=== PATIENT | female | born 1985 | race Caucasian/White ===

== ENCOUNTER 2019-05-26 11:05 | Emergency (ER) | payer OTHER, SELFPAY ==
--- NOTE | ~2019-05-26 | XR_ITS ---
EXAMINATION: XR chest 2V DATE: 05/26/2019 11:46 INDICATION: Left chest pain. TECHNIQUE: Frontal and lateral views of the chest were obtained. COMPARISON: Chest single view 02/17/2009 FINDINGS: There is mild atelectasis in the lower lung zones. No pleural effusion or pneumothorax. The heart size is normal. IMPRESSION: 1. Mild atelectasis in the lower lung zones. Reviewed, dictated and finalized at location A. ICE FELLOW
[2019-05-26 11:26] VITALS: BP 104/63; PULSE 100; RESP 20; TEMP 37.3; O2SAT 99
--- NOTE | 2019-05-26 11:32 | ECG_ITS ---
Measurements Intervals [place] Rate: 77 P: 49 CA: 179 QRS: 66 QRSD: 67 T: 65 QT: 337 QTc: 382 Interpretive Statements SINUS RHYTHM NORMAL ECG Electronically Signed On 05-26-2019 13:05:35 PAPER TESTER by Juan Pablo Goins D.O.
[2019-05-26 11:49] LABS: Basophils Percent Auto 0.6 % (0.2-1.2); Eosinophils Absolute Auto 0.2 K/mm3 (0-0.3); Eosinophils Percent Auto 3.7 % (0-4.4); Hematocrit 41.6 % (37.0-47.0); Hemoglobin 13.5 g/dL (12.0-15.0); Immature Granulocyte Absolute 0.01 K/mm3 (0.00-0.031); Immature Granulocyte Percent A 0.2 % (0-0.5); Lymphocytes Absolute Auto 2.22 K/mm3 (0.9-3.2); Lymphocytes Percent Auto 35.6 % (18.3-44.2); Mean Corpuscular HGB Conc 32.5 g/dl (32-36); Mean Corpuscular Volume 92.4 fl (80-100); Mean Platelet Volume 9.6 fl (7.4-10.4); Monocytes Absolute Auto 0.4 K/mm3 (0.1-0.6); Monocytes Percent Auto 6.9 % (2.6-8.5); Neutrophils Absolute Auto 3.3 K/mm3 (1.3-6.7); Platelet Count Result 207 k/mm3 (150-375); Red Cell Distribution Width 12.4 % (11.5-14.5); White Blood Count 6.2 K/mm3 (4.5-10.0)
[2019-05-26 11:58] LABS: INR 0.9; Prothrombin Time 11.6 Seconds (11.1-14.7)
[2019-05-26 12:01] LABS: Blood Urea Nitrogen 14 mg/dL (7-17); Calcium 9.6 mg/dL (8.4-10.2); Carbon Dioxide 25 mmol/L (22-30); Chloride 105 mmol/L (98-107); Estimated CRCL calculation 107 ml/min; Estimated Glomerular Filt Rate > 60; Glucose 88 mg/dL (65-105); Potassium 4.2 mmol/L (3.4-5.0); Sodium 137 mmol/L (137-145)
[2019-05-26 12:12] LABS: Troponin I < 0.012 ng/mL (0.000-0.034)
[2019-05-26 12:52] VITALS: BP 112/77; PULSE 89; RESP 16; O2SAT 100
--- NOTE | 2019-05-26 13:00 | ED.CHESTPAIN ---
HPI - Chest Pain General Chief Complaint: Recheck/Abnormal Lab/Rx Stated Complaint: chest pain x2 months Time Seen by Provider: 05/26/19 12:47 Source: patient and RN notes reviewed Mode of arrival: ambulatory Limitations: no limitations History of Present Illness HPI narrative: A 34 y/o female presents to the ED with constant, worsening, 8/10, lt CP for the past 3-4 months. She states that the pain is a pressure and that it radiates into her lt upper back and lt neck. She reports that the pain is aggravated when she coughs and denies anything alleviating her pain. She notes that she has had blood work done by her PCP and that her CRP was 1.7, so she was told to come to the ED to be evaluated. She denies any SOB, fevers, chills, N/V/D, ABD pain, and any other medical complaints at this time. MD complaint: chest pain Onset (ago): month(s) (3-4) Timing of current episode: constant and increasing Pain location: left chest Pain radiation: back (lt upper) and neck (lt) Pain scale (0-10): 8 Quality: other (pressure) Relieving factors: nothing Exacerbating factors: other (coughing) Related Data Home Medications Medication Instructions Recorded Confirmed alprazolam 03/26/19 escitalopram oxalate mg 03/26/19 estradiol mg 03/26/19 quetiapine 03/26/19 Allergies Allergy/AdvReac Type Severity Reaction Status Date / Time soy Allergy Mild Rash Verified 03/26/19 11:29 bee venom protein (honey bee) Allergy Unknown shock Verified 03/26/19 11:29 peanut Allergy Unknown NUTS Verified 10/16/18 12:16 CAUSE RASH metoclopramide AdvReac Mild jitters Verified 03/26/19 11:29 Review of Systems Review of Systems: All systems reviewed & are unremarkable except as noted in HPI and below Constitutional: Constitutional: Denies chills, Denies fever(s), Denies headache(s) and Denies weakness Eyes: Eyes: Denies blurry vision ENT: Denies headache(s) Cardiovascular: Cardiovascular: Reports chest pain (lt that radiates into her lt upper back and lt neck) and Denies dyspnea Respiratory: Respiratory: Denies cough and Denies dyspnea Gastrointestinal: Gastrointestinal: Denies abdominal pain, Denies diarrhea, Denies nausea and Denies vomiting Genitourinary: Genitourinary: Denies hematuria and Denies dysuria Neurologic: Denies headache(s) and Denies weakness PMFSH Past Medical History Medical History Anxiety Back pain Brain abscess Bronchitis Fibroids Foot fracture, right History of pneumonia Jaquez syndrome Ovarian cyst Pneumonia UTI (urinary tract infection) Surgical History Surgical History History of hysterectomy Hx of appendectomy Hx of brain surgery surgical removal of brain abscess Hx of section Hx of foot surgery hardware in rt foot Hx of tonsillectomy Family History Family History Grandparent Family history of malignant neoplasm of breast Family history of malignant neoplasm of ovary Social History Social History Alcohol intake: never Gender identity (if verbalized by the patient): Female Comments PCP: Dr. Kilgore. Exam Const: General: no acute distress and well developed Orientation/consciousness: oriented to person, oriented to place, oriented to time and patient oriented x3 HENMT: Head: normocephalic Ears: external ears normal General nose exam: Normal external nose present Eyes: General: appearance normal, both eyes and all related structures Conjunctivae: conjunctivae normal Neck: Neck: normal visual inspection and full ROM Chest: Chest palpation & inspection: normal inspection of the chest and no tenderness Resp: Effort & Inspection: normal respiratory effort Auscultation: clear to auscultation bilaterally Cardio: Rate: regular rate Rhythm: regular rhythm GI: GI Palp: No abdominal tenderness and Y
[2019-05-26 13:35] VITALS: BP 102/70; PULSE 82; RESP 19; O2SAT 99
[2019-05-26 14:59] VITALS: BP 109/87; PULSE 79; RESP 18; O2SAT 99
[2019-05-26 15:50] VITALS: BP 104/77; PULSE 82; RESP 18; O2SAT 99
[2019-05-26 16:01] LABS: Troponin I < 0.012 ng/mL (0.000-0.034)
[2019-05-26 16:33] VITALS: BP 104/77; PULSE 84; RESP 18; O2SAT 99
== END 2019-05-26 16:35 | disposition home or self-care (01) ==
PROVIDERS: Emergency Medicine; Emergency Provider Emergency Medicine
DX: R07.9 Chest pain, unspecified (principal); F41.9 Anxiety disorder, unspecified; Z87.440 Personal history of urinary (tract) infections
CPT/HCPCS: 36415; 71046; 80048; 84484; 85025; 85380; 85610; 85730; 93005; 99284

== ENCOUNTER 2019-06-14 09:28 | Emergency (ER) | payer OTHER, SELFPAY ==
[2019-06-14 09:36] VITALS: BP 145/102; PULSE 65; RESP 19; TEMP 36.3; O2SAT 97
--- NOTE | 2019-06-14 09:50 | ED.NAVMDI ---
HPI - Nausea/Vomiting/Diarrhea General Chief complaint: Nausea/Vomiting/Diarrhea <JORGE San Last Filed: 06/14/19 13:22> Stated complaint: VOMITING <JORGE San Last Filed: 06/14/19 13:22> Time Seen by Provider: 06/14/19 09:30 <JORGE San Last Filed: 06/14/19 13:22> Source: patient <JORGE San Last Filed: 06/14/19 13:22> Mode of arrival: ambulatory <JORGE San Last Filed: 06/14/19 13:22> Limitations: no limitations <JORGE San Last Filed: 06/14/19 13:22> History of Present Illness HPI Narrative: This is a 34 year old female that presents to the ER for N/V/D since this morning. Reports several episodes of vomiting. She has been unable to keep down any liquids. Also reports some episodes of diarrhea. Reports some crampy upper abdominal pain. Denies fever, recent antibiotic use, dysuria, hematuria, or hematochezia. <JORGE San Last Filed: 06/14/19 13:22> Related Data Home medications: Home Medications Medication Instructions Recorded Confirmed alprazolam 0.25 mg PO PRN 03/26/19 escitalopram oxalate mg 03/26/19 quetiapine 03/26/19 <JORGE San Last Filed: 06/14/19 13:22> Allergies/Adverse reactions: Allergies Allergy/AdvReac Type Severity Reaction Status Date / Time bee venom protein (honey bee) Allergy Severe Anaphylactic Verified 06/14/19 09:41 Shock soy Allergy Mild Rash Verified 06/14/19 09:41 peanut Allergy Unknown NUTS Verified 06/14/19 09:41 CAUSE RASH metoclopramide AdvReac Mild jitters Verified 06/14/19 09:41 <JORGE San Last Filed: 06/14/19 13:22> Review of Systems Review of Systems: Narrative: CONSTITUTIONAL: Denies fever ENT: Denies rhinorrhea, congestion, sore throat GASTROINTESTINAL: Reports abdominal pain, nausea, vomiting, and diarrhea. GENITOURINARY: Denies dysuria or hematuria. <Kimberly Pelaez PA-C - Last Filed: 06/14/19 13:22> All systems reviewed & are unremarkable except as noted in HPI and below <Kimberly Pelaez PA-C - Last Filed: 06/14/19 13:22> PMFSH Social History Social History: Social History Alcohol intake: never Gender identity (if verbalized by the patient): Female <JORGE San Last Filed: 06/14/19 13:22> Exam Narrative: Exam Narrative: GENERAL: Uncomfortable appearing, well-nourished, actively vomiting HEAD: Normocephalic, atraumatic. EYES: EOMI. ENT: Nares clear, no rhinorrhea or epistaxis. Mucous membranes moist. Oropharynx without tonsillar hypertrophy exudate or other lesions. Bilateral TMs pearly friend non-bulging NECK: Supple. No adenopathy or masses. CHEST: Clear to auscultation. No respiratory distress. No wheezes rales or rhonchi HEART: Regular rate and rhythm. No murmur heard. Normal peripheral pulses. ABDOMEN: Soft, nondistended, normal active bowel sounds. Mild tenderness to palpation of the mid-upper abdomen, without guarding. No CVA tenderness EXTREMITIES: Normal range of motion. No edema. SKIN: Warm, dry, no rash. NEURO: No focal deficits. Alert and oriented x3. PSYCH: Normal mood and affect <Kimberly Pelaez PA-C - Last Filed: 06/14/19 13:22> Course Reevaluation(s) Reevaluation #1: Patient reports improvement after IV antiemetic and fluids. Able to tolerate p.o. challenge <JORGE San Last Filed: 06/14/19 13:22> Date: 06/14/19 <JORGE San Last Filed: 06/14/19 13:22> Time: 13:15 <JORGE San Last Filed: 06/14/19 13:22> Vital Signs Vital signs: Vital Signs Temperature 97.4 F L 06/14/19 09:36 Pulse Rate 65 06/14/19 09:36 Respiratory Rate 19 06/14/19 09:36 Blood Pressure 145/102 H 06/14/19 09:36 Pulse Oximetry 97 06/14/19 09:36 Temperature 97.4 F L 06/14/19 09:36 Pulse Rate 99 06/14/19 13:32 Respiratory Rate 18 05/21
[2019-06-14 10:08] LABS: Basophils Percent Auto 0.4 % (0.2-1.2); Eosinophils Absolute Auto 0.1 K/mm3 (0-0.3); Eosinophils Percent Auto 0.6 % (0-4.4); Hemoglobin 14.8 g/dL (12.0-15.0); Immature Granulocyte Absolute 0.05 K/mm3 (0.00-0.031); Immature Granulocyte Percent A 0.5 % (0-0.5); Lymphocytes Absolute Auto 1.76 K/mm3 (0.9-3.2); Lymphocytes Percent Auto 15.9 % (18.3-44.2); Mean Corpuscular HGB Conc 33.6 g/dl (32-36); Mean Corpuscular Volume 89.2 fl (80-100); Mean Platelet Volume 9.6 fl (7.4-10.4); Monocytes Absolute Auto 0.5 K/mm3 (0.1-0.6); Monocytes Percent Auto 4.3 % (2.6-8.5); Neutrophils Absolute Auto 8.7 K/mm3 (1.3-6.7); Neutrophils Percent Auto 78.3 % (45.5-73.1); Platelet Count Result 245 k/mm3 (150-375); Red Blood Count 4.93 M/mm3 (4.2-5.4); Red Cell Distribution Width 12.4 % (11.5-14.5); White Blood Count 11.1 K/mm3 (4.5-10.0)
[2019-06-14] MEDS: ONDANSETRON INJ 4 MG/2 ML VIAL IV PUSH (10:09)
[2019-06-14] MEDS: SODIUM CHLORIDE 0.9% IV 1,000 ML 999 ML IV CONT (10:09)
[2019-06-14] MEDS: FAMOTIDINE 20 MG/2 ML VIAL IV PUSH (10:14)
--- NOTE | 2019-06-14 10:15 | PC.NURSE ---
Pt unable to void at this time and states that she has not had anything to eat or drink this morning.
[2019-06-14 10:16] LABS: Alanine Aminotransferase 27 U/L (4-35); Albumin Level 4.9 g/dL (3.5-5.1); Alkaline Phosphatase 124 U/L (38-126); Aspartate Amino Transferase 33 U/L (14-36); Bilirubin,Total 0.5 mg/dL (0.2-1.3); Blood Urea Nitrogen 20 mg/dL (7-17); Calcium 10.8 mg/dL (8.4-10.2); Carbon Dioxide 21 mmol/L (22-30); Chloride 106 mmol/L (98-107); Estimated CRCL calculation 107 ml/min; Estimated Glomerular Filt Rate > 60; Glucose 189 mg/dL (65-105); Lipase 253 U/L (23-300); Potassium 4.3 mmol/L (3.4-5.0); Sodium 140 mmol/L (137-145)
--- NOTE | 2019-06-14 10:37 | PC.NURSE ---
Pt still unable to void, IVF 1L bolus almost finished - pt stated she may be able to go after IVF and refuses urinary catheter until she can try to void.
[2019-06-14 11:18] VITALS: BP 131/98; BP 138/97; PULSE 78; PULSE 89
[2019-06-14 11:19] VITALS: BP 115/98; PULSE 97
[2019-06-14 11:26] LABS: Add Urine Microscopic? YES; Appearance Urine Clear (Clear); Bacteria Urine Trace /hpf; Bilirubin Urine Negative (Negative); Blood Urine 1+ (Negative); Color Urine Yellow (Yellow); Glucose Urine UA 1+ mg/dL (Negative); Ketones Urine 1+ mg/dL (Negative); Leukocyte Esterase Ur Negative LEU/UL (Negative); Mucus Urine Heavy /lpf; Nitrate Urine Negative (Negative); Protein Urine Negative (Negative); Squamous Epithelial Cell Urine Few /hpf (Few); Urobilinogen Urine Negative mg/dL (<2.0); WBC Urine 0-3 /hpf
[2019-06-14 11:27] LABS: Specific Grav Ur 1.032 (1.001-1.035)
[2019-06-14] MEDS: DICYCLOMINE HCL INJ 20 MG/2 ML VIAL IM (11:36)
[2019-06-14] MEDS: SODIUM CHLORIDE 0.9% IV 500 ML 999 ML IV CONT (11:37)
[2019-06-14 11:57] LABS: Hemoglobin A1C 5.5 % (<5.7)
--- NOTE | 2019-06-14 13:03 | PC.NURSE ---
lemon rampart soda and crackers provided to pt for po challenge.
[2019-06-14 13:32] VITALS: BP 135/95; PULSE 99; RESP 18; O2SAT 100
== END 2019-06-14 13:45 | disposition home or self-care (01) ==
PROVIDERS: Physician Assistant; Emergency Provider General Practice
DX: K52.9 Noninfective gastroenteritis and colitis, unspecified (principal)
CPT/HCPCS: 36415; 80053; 81001; 83036; 83690; 85025; 96361; 96372; 96374; 96375; 99284; J0131; J0500; J2405; J7030; J7040

== ENCOUNTER 2020-05-16 10:11 | Emergency (ER) | payer OTHER, SELFPAY ==
--- NOTE | ~2020-05-16 | XR_ITS ---
EXAMINATION: XR knee LT min 4V DATE: 05/16/2020 10:47 INDICATION: Left knee pain. TECHNIQUE: 5 views of left knee were obtained. COMPARISON: None. FINDINGS: Bone alignment is normal. No fracture. Joint spaces are well maintained. There is no knee j oint effusion. IMPRESSION: 1. Normal left knee. Reviewed, dictated and finalized at location A. R/ELECTRO OPTICS TECHNICIAN IMPRESSION: 1. Normal left knee.
--- NOTE | 2020-05-16 10:17 | ED.LOWEXIN ---
HPI - Extremity Injury (Lower) General Chief Complaint: Extremity Injury, Lower Stated Complaint: left knee injury Time Seen by Provider: 05/16/20 10:17 Source: patient and RN notes reviewed History of Present Illness HPI Narrative: Patient is a 35-year-old female who presents the urgent care with complaints of left knee injury. Patient states that she slipped on the side rail of her truck yesterday and fell directly onto the left knee. Patient states that the swelling has gone down a lot but does continue to be very tender and painful. Patient has used ice and ibuprofen for comfort. Patient states that it is very painful to bear weight and bend the knee. No other acute complaints or injuries. Patient denies of any loss of consciousness or hitting her head. No acute distress noted. Patient aware of the plan of care. Some parts of this dictation were generated by voice recognition software and may contain typographical and/or grammatical inaccuracies. Related Data Allergies Allergy/AdvReac Type Severity Reaction Status Date / Time bee venom protein (honey bee) Allergy Severe Anaphylactic Verified 05/16/20 10:27 Shock soy Allergy Mild Rash Verified 05/16/20 10:27 peanut Allergy Unknown NUTS Verified 05/16/20 10:27 CAUSE RASH metoclopramide AdvReac Mild jitters Verified 05/16/20 10:27 Review of Systems Review of Systems: Narrative: CONSTITUTIONAL: Denies fever, chills, or sweats. EYES: Denies visual changes, redness, or discharge. ENT: Denies rhinorrhea, congestion, sore throat, or otalgia. CARDIOVASCULAR: Denies chest pain, palpitations, or edema. RESPIRATORY: Denies cough or dyspnea. GASTROINTESTINAL: Denies abdominal pain, nausea, vomiting, or diarrhea. GENITOURINARY: Denies dysuria or hematuria. SKIN: Denies rash or itching. MUSCULOSKELETAL: Reports of left knee pain, swelling, tenderness due to fall NEUROLOGIC: Denies headache, numbness, or weakness. All other systems reviewed are negative, except as documented in HPI. [facility] Past Medical History Medical History (Updated 05/16/20 @ 10:57 by ANDREA Harris) Anxiety Back pain Brain abscess Bronchitis Fibroids Foot fracture, right History of pneumonia Jaquez syndrome Ovarian cyst Pneumonia UTI (urinary tract infection) Surgical History Surgical History History of hysterectomy Hx of appendectomy Hx of brain surgery surgical removal of brain abscess Hx of section Hx of foot surgery hardware in rt foot Hx of tonsillectomy Family History Family History Grandparent Family history of malignant neoplasm of breast Family history of malignant neoplasm of ovary Social History Social History Alcohol intake: never Gender identity (if verbalized by the patient): Female Comments At the time of my signature, I reviewed and agree with the nursing past medical, surgical, social, and family history. There is no relevant family history pertinent to the patient complaint. Exam Narrative: Exam Narrative: GENERAL: This is a well-nourished, well-developed patient, in no apparent distress. HEAD: normocephalic, atraumatic. EYES: PERRL. Sclera clear/white. Vision is grossly intact. EARS: External ears normal NOSE: External nose normal with no obvious nasal discharge, nares without redness, no rhinorrhea. THROAT: Mucous membranes moist NECK: Neck supple SKIN: warm, intact with no suspicious lesions or rash, good texture and turgor. NEURO: awake, alert, and oriented to person, place and time. There were no obvious focal neurologic abnormalities. EXTREMITIES: Mild edema to the anterior left knee without any obvious derangement/deformity. Range of motion to left knee limited due to pain. Weightbearing limited due to pain. Flexion of the left foot within normal limits with mild left knee pains. Diffuse left knee
[2020-05-16 10:18] VITALS: BP 136/84; PULSE 72; RESP 16; TEMP 36.5; O2SAT 100
== END 2020-05-16 11:02 | disposition home or self-care (01) ==
PROVIDERS: Emergency Provider Nurse Practitioner Family
DX: S89.92XA Unspecified injury of left lower leg, initial encounter (principal); W17.89XA Other fall from one level to another, initial encounter
CPT/HCPCS: 73564; 99213; G0463

== ENCOUNTER 2020-07-31 13:49 | Emergency (ER) | payer OTHER, SELFPAY ==
[2020-07-31 14:09] VITALS: BP 118/83; PULSE 94; RESP 18; TEMP 37.1; O2SAT 99
--- NOTE | 2020-07-31 14:26 | ED.SKABFB ---
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 Patient states she has a shorter 1 to 2-day history of right elbow eruption that is mild, itchy, pink and slightly raised. She recalls she slipped and rubbed against a patient's seat in household furnishings. She promptly cleaned it but has had symptoms since the exposure just a couple days ago. Symptoms are mild, unrelieved with OTC preparations and cleansers. Related Data Allergies Allergy/AdvReac Type Severity Reaction Status Date / Time bee venom protein (honey bee) Allergy Severe Anaphylactic Verified 05/16/20 10:27 Shock soy Allergy Mild Rash Verified 05/16/20 10:27 peanut Allergy Unknown NUTS Verified 05/16/20 10:27 CAUSE RASH metoclopramide AdvReac Mild jitters Verified 05/16/20 10:27 Review of Systems Review of Systems: Narrative: General/Constitutional: No weight loss,fever Eyes: N0: Redness,discharge Ears/Nose/Throat: No: Epistaxis,ear discharge Respiratory: Denies: Hemoptysis Gastrointestinal: No Vomiting, Bleeding-rectal Skin: No Lumps, REPORTS eruption Neurologic: No Focal Weakness,Sz Hematologic: Denies: Petechiae/Purpura Psychiatric: No: Suicida ideationl All Other Systems: Reviewed and Negative [facility] Past Medical History Medical History (Updated 07/31/20 @ 14:28 by Burton Farnsworth MD) Anxiety Back pain Brain abscess Bronchitis Fibroids Foot fracture, right History of pneumonia Jaquez syndrome Ovarian cyst Pneumonia UTI (urinary tract infection) Surgical History Surgical History History of hysterectomy Hx of appendectomy Hx of brain surgery surgical removal of brain abscess Hx of section Hx of foot surgery hardware in rt foot Hx of tonsillectomy Family History Family History Grandparent Family history of malignant neoplasm of breast Family history of malignant neoplasm of ovary Social History Social History Alcohol intake: never Gender identity (if verbalized by the patient): Female Comments At time of signature, agree with nursing past medical, surgical, social and family history. There is no relevant family history pertinent to the presenting complaint Exam Narrative: Exam Narrative: General Appearance: Well-nourished, Normocephalic, Conjunctiva clear Mouth/Throat: Normal appearing, Supple Respiratory: Airway patent, No respiratory distress Musculoskeletal: Moves all extremities, Non tender Skin: Warm, Dry ,small, discrete macular papular skin eruption of left elbow & crease Neurological: A&O x3 Psychiatric: Normal mood, Normal affect Course Vital Signs Vital signs: Vital Signs Temperature 98.8 F 07/31/20 14:09 Pulse Rate 94 07/31/20 14:09 Respiratory Rate 18 07/31/20 14:09 Blood Pressure 118/83 07/31/20 14:09 Pulse Oximetry 99 07/31/20 14:09 Temperature 98.8 F 07/31/20 14:09 Pulse Rate 94 07/31/20 14:09 Respiratory Rate 18 07/31/20 14:09 Blood Pressure 118/83 07/31/20 14:09 Pulse Oximetry 99 07/31/20 14:09 Discharge Plan Discharge Clinical Impression: Folliculitis Patient Disposition: Home, Self-Care Condition: Stable Instructions: Antibiotic Form, Folliculitis (ED) Prescriptions: New clindamycin HCl 300 mg capsule 300 mg PO Q6H Qty: 15 RF: 0 mupirocin 2 % ointment 1 applic TOPICAL TID Qty: 30 RF: 0 Follow-up/Referrals: Luann Kilgore [employer] DRIVER [Other]
== END 2020-07-31 14:34 | disposition home or self-care (01) ==
PROVIDERS: Emergency Provider Emergency Medicine
DX: L73.9 Follicular disorder, unspecified (principal)
CPT/HCPCS: 99213; G0463

== ENCOUNTER 2020-11-30 17:39 | Emergency (ER) | payer OTHER, SELFPAY ==
--- NOTE | ~2020-11-30 | XR_ITS ---
. EXAMINATION: XR knee LT min 4V DATE: 11/30/2020 18:14 INDICATION: Left knee injury presenting with left knee pain and swelling TECHNIQUE: Anteroposterior, 2 oblique and crosstable lateral views of the left knee were obtained COMPARISON: None. FINDINGS: Alignment is normal. No fracture. Joint spaces are normal on nonweightbearing imaging. No joint effu darlene/layering lipohemarthrosis. Soft tissues are unremarkable. IMPRESSION: 1. Negative left knee radiographs. Reviewed, dictated and finalized at location A.
[2020-11-30 17:46] VITALS: BP 134/76; PULSE 92; RESP 18; TEMP 37.2; O2SAT 100
[2020-11-30 18:00] VITALS: BP 134/76; PULSE 92; RESP 18; TEMP 37.2; O2SAT 100
--- NOTE | 2020-11-30 18:34 | ED.LOWEXIN ---
HPI - Extremity Injury (Lower) General Chief Complaint: Extremity Injury, Lower Stated Complaint: Pain and swollen left Knee Time Seen by Provider: 11/30/20 17:58 Source: patient and RN notes reviewed Mode of arrival: ambulatory Limitations: no limitations History of Present Illness HPI Narrative: Patient presents today complaining of left knee pain and popping x2 months that is worse with flexion. Last night at 2300 she experienced worse pain. This morning when she woke up the pain was worse even still and she also had some swelling. Denies any known injury. Denies numbness or tingling. She currently rates her pain 9/10 and has been taking ibuprofen and applying ice without relief. MD complaint: other (Left knee pain) Related Data Home Medications Medication Instructions Recorded Confirmed No Home Medications 11/30/20 11/30/20 Allergies Allergy/AdvReac Type Severity Reaction Status Date / Time bee venom protein (honey bee) Allergy Severe Anaphylactic Verified 11/30/20 17:59 Shock soy Allergy Mild Rash Verified 11/30/20 17:59 peanut Allergy Unknown NUTS Verified 11/30/20 17:59 CAUSE RASH metoclopramide AdvReac Mild jitters Verified 11/30/20 17:59 Review of Systems Review of Systems: CONSTITUTIONAL: Denies body aches, fever, chills, or sweats. EYES: Denies visual changes, redness, or discharge. ENT: Denies rhinorrhea, congestion, sore throat, or otalgia. CARDIOVASCULAR: Denies chest pain, palpitations, or edema. RESPIRATORY: Denies cough or dyspnea. GASTROINTESTINAL: Denies abdominal pain, nausea, vomiting, or diarrhea. GENITOURINARY: Denies dysuria or hematuria. SKIN: Denies rash, itching, or wounds. MUSCULOSKELETAL: Denies back pain, or myalgia.+ Left knee pain and swelling NEUROLOGIC: Denies headache, numbness, tingling, or weakness. PSYCH: Denies depression or anxiety. [facility] Past Medical History Medical History Anxiety Back pain Brain abscess Bronchitis Fibroids Foot fracture, right History of pneumonia Jaquez syndrome Ovarian cyst Pneumonia UTI (urinary tract infection) Surgical History Surgical History History of hysterectomy Hx of appendectomy Hx of brain surgery surgical removal of brain abscess Hx of section Hx of foot surgery hardware in rt foot Hx of tonsillectomy Family History Family History Grandparent Family history of malignant neoplasm of breast Family history of malignant neoplasm of ovary Social History Social History Alcohol intake: never Gender identity (if verbalized by the patient): Female Comments At time of signature, I have reviewed and agree with nursing past medical, surgical, social and family history unless otherwise noted. Please see nursing chart for further information. There is no relevant family history pertinent to the presenting complaint Exam Narrative: GENERAL: Well-appearing, well-nourished, and in no acute distress. HEAD: Normocephalic, atraumatic. EYES: EOMI. No redness or drainage. Conjunctivae normal. ENT: Mucous membranes pink and moist. NECK: Normal AROM. CHEST: No respiratory distress. EXTREMITIES: Left knee: Mild generalized edema. Tenderness just below the patella and to the medial joint line. No abnormal movement of the patella. No tenderness laterally. No erythema or ecchymosis noted. Slight pain with extension. Increased pain with flexion. Distal sensation intact. Capillary refill normal. Pulse normal. SKIN: Warm, dry, no rash. Capillary refill normal. Normal skin turgor. NEURO: No focal deficits. Alert and oriented x3. Gait steady. PSYCH: Normal affect. No signs of depression or anxiety. Course Vital Signs Vital signs: Vital Signs Temperature 98.
== END 2020-11-30 18:40 | disposition home or self-care (01) ==
PROVIDERS: Emergency Provider Nurse Practitioner
DX: M25.562 Pain in left knee (principal); F41.9 Anxiety disorder, unspecified
CPT/HCPCS: 73564; 99213; G0463

== ENCOUNTER 2020-12-06 12:14 | Emergency (ER) | payer OTHER, SELFPAY ==
--- NOTE | ~2020-12-06 | US_ITS ---
US venous doppler [facility] DATE: 12/06/2020 15:20 INDICATION: Lower leg pain, swelling TECHNIQUE: Real-time and color flow imaging and Doppler analysis of the veins of the left lower extre mity COMPARISON: None FINDINGS: The greater saphenous vein is patent. There is spontaneous and phasic flow and normal augme ntation and color flow signal and normal compression of the veins of the left leg. IMPRESSION: No evidence of deep venous thrombosis Reviewed, dictated and finalized at [facility]. Reviewed, dictated and finalized at location [facility].
[2020-12-06 12:28] VITALS: BP 105/70; PULSE 88; RESP 16; TEMP 36.6; O2SAT 100
[2020-12-06] MEDS: traMADol HCL (*CRX) 50 MG TABLET PO (14:57)
--- NOTE | 2020-12-06 16:51 | ED.LOWEXIN ---
HPI - Extremity Injury (Lower) General Chief Complaint: Extremity Injury, Lower Stated Complaint: knee pain Time Seen by Provider: 12/06/20 14:06 Source: patient Mode of arrival: ambulatory Limitations: no limitations History of Present Illness HPI Narrative: This is a 35 year old female that presents to the ER for left knee pain present over the last couple of months. Reports she is started to note swelling to the area. The swelling has started to go down into her lower leg which prompted her to be seen today. Reports decreased range of motion due to pain. She has been taking Tylenol and anti-inflammatories with little relief. She saw her primary doctor and an x-ray of the knee which is normal. Denies fever, erythema, warmth, or numbness. Related Data Allergies Allergy/AdvReac Type Severity Reaction Status Date / Time bee venom protein (honey bee) Allergy Severe Anaphylactic Verified 11/30/20 17:59 Shock soy Allergy Mild Rash Verified 11/30/20 17:59 peanut Allergy Unknown NUTS Verified 11/30/20 17:59 CAUSE RASH metoclopramide AdvReac Mild jitters Verified 12/06/20 13:01 Review of Systems Review of Systems: CONSTITUTIONAL: Denies fever SKIN: Denies rash MUSCULOSKELETAL: Reports joint pain, and myalgia. NEUROLOGIC: Denies numbness All systems reviewed & are unremarkable except as noted in HPI and below PMFSH Past Medical History Medical History (Updated 12/06/20 @ 16:59 by Kimberly Pelaez PA-C) Anxiety Back pain Brain abscess Bronchitis Fibroids Foot fracture, right History of pneumonia Jaquez syndrome Ovarian cyst Pneumonia UTI (urinary tract infection) Surgical History Surgical History History of hysterectomy Hx of appendectomy Hx of brain surgery surgical removal of brain abscess Hx of section Hx of foot surgery hardware in rt foot Hx of tonsillectomy Family History Family History Grandparent Family history of malignant neoplasm of breast Family history of malignant neoplasm of ovary Social History Social History Alcohol intake: never Gender identity (if verbalized by the patient): Female Exam Narrative: GENERAL: Well-appearing, well-nourished, and in no acute distress. HEAD: Normocephalic, atraumatic. EYES: EOMI. EXTREMITIES: Decreased active ROM in the left knee due to pain. Mild edema about the left knee anteriorly. No erythema or warmth. Normal DP pulses. Normal sensation SKIN: Warm, dry, no rash. NEURO: No focal deficits. Alert and oriented x3. PSYCH: Normal mood and affect Course Vital Signs Vital signs: Vital Signs Temperature 97.9 F 12/06/20 12:28 Pulse Rate 88 12/06/20 12:28 Respiratory Rate 16 12/06/20 12:28 Blood Pressure 105/70 12/06/20 12:28 Pulse Oximetry 100 12/06/20 12:28 Temperature 97.9 F 12/06/20 12:28 Pulse Rate 88 12/06/20 12:28 Respiratory Rate 16 12/06/20 12:28 Blood Pressure 105/70 12/06/20 12:28 Pulse Oximetry 100 12/06/20 12:28 MDM - Extremity Injury (Lower) MDM Narrative Medical decision making narrative: Patient presents the emergency department for left knee pain and swelling. Has been ongoing over the last couple of months. Patient is neurovascularly intact. Had a left knee x-ray 1 week ago outpatient that was normal. Left lower extremity venous Doppler is without evidence of DVT, no abnormal masses or cysts noted. Patient was updated on case findings. Reports she has an MRI scheduled outpatient in a couple of days. Instructed to follow-up for this and continue [id number] medications as needed. Instructed to wear a compressive brace and elevate the leg. She is to follow-up for her scheduled test. She was given warnings to return to the ER Imaging Data Radiologist's impression: ITS Impressions
== END 2020-12-06 17:09 | disposition home or self-care (01) ==
PROVIDERS: Emergency Provider Emergency Medicine
DX: M25.562 Pain in left knee (principal); F41.9 Anxiety disorder, unspecified; Z87.09 Personal history of other diseases of the respiratory system; Z87.01 Personal history of pneumonia (recurrent); Z87.440 Personal history of urinary (tract) infections
CPT/HCPCS: 93971; 99284; A9270

== ENCOUNTER 2020-12-10 16:51 | Outpatient (CLI) | payer OTHER, SELFPAY ==
--- NOTE | ~2020-12-10 | MR_ITS ---
EXAMINATION: MR knee LT wo con DATE: 12/10/2020 17:53 INDICATION: Left knee pain and swelling TECHNIQUE: Magnetic resonance imaging (MRI) of the left knee was performed without intravenous contra st. Sequences included coronal PD-weighted FSE, coronal PD-weighted FS FSE, sagittal T2-weighted FSE , sagittal PD-weighted FS FSE and axial PD weighted fat saturated FSE. COMPARISON: Left knee radiographs dated 11/30/2020 FINDINGS: Medial compartment: Complex tear of the medial meniscus which includes a bucket-handle tear with relatively thin (small i n cross-sectional area) laterally displaced meniscal flap which extends anteroposteriorly along the m edial side of the intercondylar eminence. The majority of the meniscus is nondisplaced with a second longitudinal horizontal tear plane which extends to the inferior articular surface at the meniscal shikha dy and likely posterior horn. Articular cartilage is normal. Lateral compartment: Lateral meniscus is normal. Articular cartilage is normal. Patellofemoral compartment: Articular cartilage is normal. Ligaments and tendons: Anterior and posterior cruciate ligaments are normal. The medial collateral ligament and fibular elizabeth ateral ligament complex are normal. The extensor mechanism is normal. The visualized medial and later al hamstring tendons as well as the iliotibial band are normal. Fluid: Small left knee joint effusion. Mild synovitis within a Cotton's cyst measuring 4.6 x 1.9 x 1.0 cm. No loose osteochondral bodies identified. Osseous/other: Normal marrow signal. No fracture or abnormal marrow replacing process. There is a medial plical band which inferiorly extends to, but not across the medial margin of the medial trochlea. IMPRESSION: 1. Complex tear of the medial meniscus including a longitudinal horizontal tear as well as a very sma ll laterally displaced bucket-handle flap. 2. Small left knee joint effusion with small Cotton's cyst. Reviewed, dictated and finalized at location [facility]. IMPRESSION: 1. Complex tear of the medial meniscus including a longitudinal horizontal tear as well as a very small laterally displaced bucket-handle flap. 2. Small left knee joint effusion with small Cotton's cyst.
== END 2020-12-10 16:52 | disposition home or self-care (01) ==
DX: M25.562 Pain in left knee (principal); S83.232A Complex tear of medial meniscus, current injury, left knee, initial encounter; M25.462 Effusion, left knee; M71.22 Synovial cyst of popliteal space [Baker], left knee
CPT/HCPCS: 73721

== ENCOUNTER 2021-02-03 08:30 | Outpatient (RCR) | payer OTHER, SELFPAY ==
--- NOTE | 2021-01-24 16:06 | PTOPEVAL ---
PHYSICAL THERAPY EVALUATION AND PLAN OF CARE 01-24-21 Thank you for referring Ayana Garcia to [facility].? Her order for PT is dated 01-03-21. She is scheduled to be seen for therapy? 2 x/week for 1 & 1/2 weeks, to be completed prior to her surgery date of 02-05-21. Please review, sign, date and return this plan of care JOCE. I agree with and certify that the following plan of care is medically necessary. Referring Physician Date Attending Provider: Cindy Daly MD PT Outpatient Evaluation Document 01/24/21 15:20 QUITA (Rec: 01/24/21 16:06 QUITA [id number]) Outpatient Past Medical History Past Medical History Source of Past Medical History Patient Neurological History Hx Other Neurological Disorders Yes: BRAIN TUMOR REMOVED X2; no residual issues Cardiovascular History Hx Other Cardiac Disorders Yes: cardiac irregularities, skipping beats, now is OK Respiratory History Hx Other Respiratory Disorders Yes: collapsed lung Gastrointestinal History Hx Appendectomy Yes Hx Other Gastrointestinal Disorders Yes: 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 Musculoskeletal History Hx Orthopedic Surgery Yes: RT FOOT Hematological History Hx Other Hematological Disorders Yes: GENETIC SDHA Endocrine History Hx Other Endocrine Disorders Yes: thyroid tumors , cyst on L kidney-- both monitoring HEENT History Hx Tonsillectomy Yes Psychosocial History Hx Anxiety Yes Hx Depression Yes Other History Hx Cancer Yes: UTERINE- removed Hx Other Medical Conditions Yes: 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- monitor with drs Evaluation Information Problem Diagnosis acute medial meniscal tear L knee Onset Apr 2020 Subjective Information fell in April; some Query Text:As Reported By Patient/ swelling and knee pain; went Family away and then started hurting again; going to have surgery Feb 05; Diagnostic Tests MRI For This Problem Yes: complex tear medial meniscus small sauceda's cyst Prior Level of Function Activity Level (Last 3 Months) 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
--- NOTE | 2021-03-05 13:59 | PCPTNOTE ---
PHYSICAL THERAPY DISCHARGE 03-05-21 Attending Provider: Cindy Daly MD Patient:Ayana Garcia Date of :1985 Ayana has received 4 PT sessions, from January 24 to , for the diagnosis of L knee pain. She has not returned for any further treatments, therefore she will be discharged at this time. The goals were not assessed. Thank you for referring Ayana to [facility]. Please review, sign, date and return this discharge summary JOCE. I have been updated about the patient's current status and I agree with discharge from the above service at this time. Referring Physician Date
== END 2021-03-07 08:52 | disposition home or self-care (01) ==
LOC: ANHPT 08:30
DX: S83.242D Other tear of medial meniscus, current injury, left knee, subsequent encounter (principal)
CPT/HCPCS: 97110; 97140; 97161

== ENCOUNTER 2021-02-17 16:22 | Emergency (ER) | payer OTHER, SELFPAY ==
[2021-02-17 16:25] VITALS: BP 122/95; PULSE 102; RESP 14; TEMP 36.5; O2SAT 96
--- NOTE | 2021-02-17 16:53 | PC.NURSE ---
Patient reports that she is going to leave at this time without seeing a doctor, patient appears in no distress.
[2021-02-17 16:59] LABS: Basophils Percent Auto 0.3 % (0.2-1.2); Eosinophils Percent Auto 0.2 % (0-4.4); Hematocrit 42.9 % (37.0-47.0); Hemoglobin 14.4 g/dL (12.0-15.0); Immature Granulocyte Absolute 0.05 K/mm3 (0.00-0.031); Immature Granulocyte Percent A 0.6 % (0-0.5); Lymphocytes Percent Auto 11.2 % (18.3-44.2); Mean Corpuscular HGB Conc 33.6 g/dl (32-36); Mean Corpuscular Volume 92.5 fl (80-100); Mean Platelet Volume 9.2 fl (7.4-10.4); Monocytes Absolute Auto 0.4 K/mm3 (0.1-0.6); Neutrophils Absolute Auto 7.5 K/mm3 (1.3-6.7); Neutrophils Percent Auto 83.7 % (45.5-73.1); Platelet Count Result 283 k/mm3 (150-375); Red Blood Count 4.64 M/mm3 (4.2-5.4); Red Cell Distribution Width 12.1 % (11.5-14.5); White Blood Count 8.9 K/mm3 (4.5-10.0)
[2021-02-17 17:14] LABS: Alanine Aminotransferase 18 U/L (4-35); Albumin Level 4.4 g/dL (3.5-5.1); Alkaline Phosphatase 98 U/L (38-126); Anion Gap 9 mmol/L (8-16); Aspartate Amino Transferase 27 U/L (14-36); Bilirubin,Total 0.5 mg/dL (0.2-1.3); Blood Urea Nitrogen 20 mg/dL (7-17); Calcium 10.7 mg/dL (8.4-10.2); Carbon Dioxide 27 mmol/L (22-30); Chloride 105 mmol/L (98-107); Estimated CRCL calculation 91 ml/min; Estimated Glomerular Filt Rate > 60; Glucose 115 mg/dL (65-110); Lipase 140 U/L (23-300); Potassium 4.2 mmol/L (3.4-5.0); Sodium 141 mmol/L (137-145)
== END 2021-02-18 02:28 | disposition left against medical advice (07) ==
PROVIDERS: Emergency Provider General Practice
DX: R11.2 Nausea with vomiting, unspecified (principal)
CPT/HCPCS: 36415; 80053; 83690; 85025; 99199

== ENCOUNTER 2021-02-18 10:39 | Emergency (ER) | payer OTHER, SELFPAY ==
--- NOTE | ~2021-02-18 | CT_ITS ---
EXAMINATION: CT abdomen pelvis w con INDICATION: Lower abdominal pain TECHNIQUE: Computed tomographic images of the abdomen and pelvis were obtained after the administrati on of 100 cc of Omnipaque 350 intravenous contrast. The dose-length product (DLP) was 371.74 mGy-cm. Automated exposure control and iterative reconstruction technique were employed. COMPARISON: 12/29/2017 FINDINGS: Minimal dependent atelectasis is present in the lung bases. The heart size is normal. The l iver, spleen, pancreas, gallbladder, and adrenal glands are normal. Cysts of the kidneys measure up t o 13 mm on the left. No pathologically enlarged abdominal or pelvic lymph nodes are identified. There is no free intraperitoneal gas or evidence of bowel obstruction. There are changes of hysterectomy a nd appendectomy. IMPRESSION: 1. No CT correlate for the patient's symptoms. Reviewed, dictated and finalized at location [facility].
[2021-02-18 11:06] VITALS: BP 131/95; PULSE 76; RESP 20; TEMP 37; O2SAT 98
[2021-02-18 11:25] LABS: Basophils Percent Auto 0.4 % (0.2-1.2); Eosinophils Percent Auto 0.1 % (0-4.4); Hematocrit 44.3 % (37.0-47.0); Hemoglobin 14.8 g/dL (12.0-15.0); Immature Granulocyte Absolute 0.03 K/mm3 (0.00-0.031); Immature Granulocyte Percent A 0.3 % (0-0.5); Lymphocytes Absolute Auto 1.31 K/mm3 (0.9-3.2); Lymphocytes Percent Auto 14.5 % (18.3-44.2); Mean Corpuscular HGB Conc 33.4 g/dl (32-36); Mean Corpuscular Hemoglobin 31.3 pg (26-34); Mean Corpuscular Volume 93.7 fl (80-100); Mean Platelet Volume 9.2 fl (7.4-10.4); Monocytes Absolute Auto 0.6 K/mm3 (0.1-0.6); Monocytes Percent Auto 6.1 % (2.6-8.5); Neutrophils Absolute Auto 7.1 K/mm3 (1.3-6.7); Neutrophils Percent Auto 78.6 % (45.5-73.1); Platelet Count Result 284 k/mm3 (150-375); Red Blood Count 4.73 M/mm3 (4.2-5.4); Red Cell Distribution Width 11.9 % (11.5-14.5); White Blood Count 9.1 K/mm3 (4.5-10.0)
[2021-02-18 11:38] LABS: Alanine Aminotransferase 17 U/L (4-35); Albumin Level 4.8 g/dL (3.5-5.1); Alkaline Phosphatase 102 U/L (38-126); Anion Gap 11 mmol/L (8-16); Aspartate Amino Transferase 25 U/L (14-36); Bilirubin,Total 0.5 mg/dL (0.2-1.3); Blood Urea Nitrogen 20 mg/dL (7-17); Calcium 10.8 mg/dL (8.4-10.2); Carbon Dioxide 26 mmol/L (22-30); Chloride 103 mmol/L (98-107); Estimated CRCL calculation 81 ml/min; Estimated Glomerular Filt Rate > 60; Glucose 122 mg/dL (65-110); Lipase 273 U/L (23-300); Potassium 4.5 mmol/L (3.4-5.0); Sodium 140 mmol/L (137-145)
[2021-02-18 12:18] VITALS: BP 118/96; PULSE 88; RESP 12; O2SAT 96
[2021-02-18 12:31] VITALS: BP 119/90; PULSE 77; RESP 15; TEMP 37.1; O2SAT 98
--- NOTE | 2021-02-18 13:14 | PC.NURSE ---
Attempted to get IV access x2, another RN is going to try
--- NOTE | 2021-02-18 13:26 | ED.NAVMDI ---
HPI - Nausea/Vomiting/Diarrhea General Chief complaint: Nausea/Vomiting/Diarrhea Stated complaint: N/V X1DAY Time Seen by Provider: 02/18/21 12:28 Source: patient and RN notes reviewed Mode of arrival: ambulatory Limitations: no limitations History of Present Illness HPI Narrative: This is a 36 year old female who presents for evaluation of nausea, vomiting and abdominal pain. She woke yesterday not feeling well, and she developed nausea, vomiting and lower abdominal pain in the afternoon. She describes her pain has constant burning and cramping pain. She is having multiple episodes of nonbloody, nonbilious emesis. She is having issues with constipation because she has been on pain medication for 2 weeks. She has left knee meniscus repair performed 2 weeks ago at [facility] . She reports having small bowel movement this morning. She took 3 dose of Zofran without improvement in her nausea prior to arrival. She denies fever or chills. Related Data Allergies Allergy/AdvReac Type Severity Reaction Status Date / Time bee venom protein (honey bee) Allergy Severe Anaphylactic Verified 11/30/20 17:59 Shock soy Allergy Mild Rash Verified 11/30/20 17:59 peanut Allergy Unknown NUTS Verified 11/30/20 17:59 CAUSE RASH metoclopramide AdvReac Mild jitters Verified 12/06/20 13:01 Review of Systems Review of Systems: All systems reviewed & are unremarkable except as noted in HPI and below PMFSH Past Medical History Medical History (Updated 02/18/21 @ 18:35 by Ramona Kee MD) Anxiety Back pain Brain abscess Bronchitis Fibroids Foot fracture, right History of pneumonia Jaquez syndrome Ovarian cyst Pneumonia UTI (urinary tract infection) Surgical History Surgical History History of hysterectomy Hx of appendectomy Hx of brain surgery surgical removal of brain abscess Hx of section Hx of foot surgery hardware in rt foot Hx of tonsillectomy Family History Family History Grandparent Family history of malignant neoplasm of breast Family history of malignant neoplasm of ovary Social History Social History Alcohol intake: never Gender identity (if verbalized by the patient): Female Exam Const: General: alert and ill appearing Orientation/consciousness: patient oriented x3 Eyes: EOM: EOMs intact bilaterally Resp: Effort & Inspection: normal respiratory effort and no retractions Auscultation: clear to auscultation bilaterally Cardio: Rate: regular rate Rhythm: regular rhythm Heart sounds: no murmurs GI: GI Palp: Yes Soft to palpation, Yes Tenderness to palpation present (GI) (suprapubic and LLQ), No Guarding due to palpation present (GI) and No Rigid due to palpation Auscultation: normal bowel sounds Neuro: General: patient oriented x3, moves all extremities and CN's II-XI intact bilaterally Extrem: Other: left leg wrap in yoselyn bandage and brace. Psych: Mental Status: mental status grossly normal Affect: normal affect Course Reevaluation(s) Reevaluation #1: I discussed with patient that labs and CT are unremarkable. She has been able to drink water and eat crackers with out vomiting. She states she is ready for discharge home. Date: 02/18/21 Time: 18:32 Vital Signs Vital signs: Vital Signs Temperature 98.6 F 02/18/21 11:06 Pulse Rate 76 02/18/21 11:06 Respiratory Rate 20 02/18/21 11:06 Blood Pressure 131/95 H 02/18/21 11:06 Pulse Oximetry 98 02/18/21 11:06 Temperature 98.7 F 02/18/21 12:31 Pulse Rate 71 02/18/21 18:56 Respiratory Rate 18 02/18/21 18:56 Blood Pressure 120/86 02/18/21 18:56 Pulse Oximetry 100 02/18/21 18:56 MDM - Nausea/Vomiting/Diarrhea Lab Data Attestation: I reviewed the patient's lab results. Result diagrams: 02/18
[2021-02-18] MEDS: PROMETHAZINE HCL 25 MG/ML AMPUL 12.5 MG IV PUSH ×2 (13:49→16:45)
[2021-02-18] MEDS: SODIUM CHLORIDE 0.9% IV 1,000 ML 999 ML IV CONT ×2 (13:49→14:18)
[2021-02-18 15:10] LABS: Add Urine Microscopic? YES; Appearance Urine Clear (Clear); Bacteria Urine Trace /hpf; Bilirubin Urine Negative (Negative); Blood Urine 1+ (Negative); Color Urine Straw (Yellow); Glucose Urine UA Negative (Negative); Ketones Urine 2+ mg/dL (Negative); Leukocyte Esterase Ur Negative LEU/UL (Negative); Mucus Urine Rare /lpf; Nitrate Urine Negative (Negative); Protein Urine Negative (Negative); RBC Urine 0-2 /hpf (0-2); Squamous Epithelial Cell Urine Moderate /hpf (Few); Urobilinogen Urine Negative mg/dL (<2.0); WBC Urine 0-3 /hpf
--- NOTE | 2021-02-18 16:00 | PC.NURSE ---
Pt resting quietly and has not vomited in an hour
[2021-02-18] MEDS: MORPHINE SULFATE (*CRX) 4 MG/ML INJ IV PUSH (16:45)
[2021-02-18 17:51] VITALS: BP 116/87; PULSE 68; RESP 20; O2SAT 97
--- NOTE | 2021-02-18 17:58 | PC.NURSE ---
Pt states she feels nauseated after PO challenge have not vomited
--- NOTE | 2021-02-18 18:38 | PC.NURSE ---
Pt was given water and crackers for challenge pt has not vomited
[2021-02-18 18:56] VITALS: BP 120/86; PULSE 71; RESP 18; O2SAT 100
== END 2021-02-18 18:57 | disposition home or self-care (01) ==
PROVIDERS: Emergency Medicine; Emergency Provider General Practice
DX: E86.0 Dehydration (principal); R11.2 Nausea with vomiting, unspecified; Z98.890 Other specified postprocedural states; Z87.01 Personal history of pneumonia (recurrent); Z87.440 Personal history of urinary (tract) infections; Z15.09 Genetic susceptibility to other malignant neoplasm
CPT/HCPCS: 36415; 74177; 80053; 81001; 83690; 85025; 96361; 96374; 96375; 99284; J2270; J2550; J7030; Q9967

== ENCOUNTER 2021-04-17 16:15 | Outpatient (RCR) | payer OTHER, SELFPAY ==
--- NOTE | 2021-03-11 12:01 | PTOPEVAL ---
PHYSICAL THERAPY EVALUATION AND PLAN OF CARE Thank you for referring Ayana Garcia to [facility].? The patient is scheduled to be seen for therapy? 2x/week for 5-8 weeks. Please review, sign, date and return this plan of care JOCE. I agree with and certify that the following plan of care is medically necessary. 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 Musculoskeletal History Hx Orthopedic Surgery Yes: RT FOOT Hematological History Hx Other Hematological Disorders Yes: GENETIC SDHA Endocrine History Hx Other Endocrine Disorders Yes: thyroid tumors , cyst on L kidney-- both monitoring HEENT History Hx Tonsillectomy Yes Psychosocial History Hx Anxiety Yes Hx Depression Yes Other History Hx Cancer Yes: UTERINE- removed Hx Other Medical Conditions Yes: 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 She did have a meniscal repair and the rehab will follow appropriate protocols. She reports that things are going well generally. Does report that her left foot will turn purple when down with gravity too long. She does spend a lot of time with the leg elevated Self Report Pain Assessment Left Knee(s) Reported Pain Level 6 Pain Description Throbbing Pain Frequency Acute Greatest Pain Intensity 9 Pain Score Pain Score 6: Self Report Interventions Used Interventions Used By Clinicians Position Change Lower Extremity Range of Motion Knee Range of Motion Left Knee Flexion Range of Motion - Active 62 Knee Extension Range of Motion - Active -8 Query Text: Knee Range of Motion Comments restricted to no greater than 90deg until afte
--- NOTE | 2021-03-26 13:04 | PCPTNOTE ---
Patient called & cancelled scheduled appointment this date due to her kid being sick.
--- NOTE | 2021-04-02 16:13 | PTOPEVAL ---
PHYSICAL THERAPY PROGRESS NOTE Thank you for referring Ayana Garcia to [facility].? The patient is scheduled to be seen for therapy? 2x/week for 4more weeks. Please review, sign, date and return this plan of care JOCE. I agree with and certify that the following plan of care is medically necessary. Referring Physician Date Attending Provider: Cindy Daly Progress Diagnosis meniscus repair Onset 02/05/2021 Subjective Information Generally she is doing well. Query Text:As Reported By Patient/ Still having quite a bit of Family pain in the knee. She fell twice 2 days ago and is pretty sore from it. STates she is still experiencing a purple coloration in the lower leg with somewhat of a numbish feeling. Also states that today she is experiencing some sensitivity over two of the incision sites. Self Report Pain Assessment Left Knee(s) Reported Pain Level 3 Pain Description Throbbing Pain Frequency Acute Pain Score Pain Score 3: Self Report Interventions Used Interventions Used By Clinicians Exercise,Ice,Manual Therapy Techniques Lower Extremity Range of Motion Knee Range of Motion Left Knee Flexion Range of Motion - Active 75 Knee Extension Range of Motion - Active 0 Query Text: Knee Range of Motion Comments restricted to no greater than 90deg until after 6 weeks post op Lower Extremity Muscle Strength Testing Hip Strength Left Hip Flexion Strength 4+ Good + Hip Extension Strength 3 Fair Hip Abduction Strength 3 Fair Knee Strength Left Knee Flexion Strength 4 Good Knee Extension Strength 3+ Fair + Knee Strength Comments quad set is improving Palpation states there is a new onset of sensitivity and pain over two of the incision sites - no known reason for why this might have started but states that it is very sensitive. General Exercise General Exercises Side Left Exercise Location knee Exercise Type Active,Isometric Exercise Description -quad set - working on taking Query Text:Record Sets, Reps, glutes away from the quat set Resistance, and Position -heel slides to increase knee flexio
--- NOTE | 2021-05-15 10:35 | PCPTNOTE ---
PHYSICAL THERAPY DISCHARGE NOTE Attending Provider: Cindy Daly Patient:Ayana Garcia Date of :1985 At her last attended visit, Ayana indicated that there may be further surgical interventions needed based on her doctor's visit. She has not returned or communicated with us since 04/17/21, therefore we will d/c this chart at this time. We will be happy to work with her again when she is ready to re-start PT. Thank you for referring this patient to [facility]. Please review, sign, date and return this discharge summary JOCE. I have been updated about the patient's current status and I agree with discharge from the above service at this time. Referring Physician Date
== END 2021-05-16 10:12 | disposition home or self-care (01) ==
LOC: ANHPT 16:15
DX: Z48.89 Encounter for other specified surgical aftercare (principal)
CPT/HCPCS: 97014; 97016; 97110; 97112; 97140; 97162; G0283

== ENCOUNTER 2021-07-10 10:58 | Emergency (ER) | payer OTHER, SELFPAY ==
--- NOTE | ~2021-07-10 | US_ITS ---
EXAMINATION: US venous doppler [facility] DATE: 07/10/2021 12:01 INDICATION: Left calf pain and swelling TECHNIQUE: Wayne scale images without and with compression and Doppler images of the left lower extrem ity veins were obtained. COMPARISON: 12/06/2020 FINDINGS: The left common femoral vein, profunda femoral vein, femoral vein, popliteal vein, peroneal trunk, posterior tibial veins, and greater saphenous vein are patent. There appears to be a left Patricia er's cyst measuring up to 6.1 cm. IMPRESSION: 1. Patent left lower extremity veins. No evidence of deep venous thrombosis. Reviewed, dictated and finalized at location B.
--- NOTE | ~2021-07-10 | XR_ITS ---
EXAMINATION: XR knee LT 3V DATE: 07/10/2021 12:13 INDICATION: Left knee pain TECHNIQUE: Three views of the left knee were obtained. COMPARISON: 11/30/2020 FINDINGS: Alignment is normal. No fracture or osteochondral lesion. There is mild narrowing of the la teral patellofemoral compartment. A small joint effusion is present. Soft tissues are unremarkable. IMPRESSION: 1. Osteoarthritis and small joint effusion without acute osseous abnormality. Reviewed, dictated and finalized at location B.
[2021-07-10 11:01] VITALS: BP 148/84; PULSE 88; RESP 16; TEMP 36.3; O2SAT 100
--- NOTE | 2021-07-10 11:27 | ED.LOWEXIN ---
HPI - Extremity Injury (Lower) General Chief Complaint: Extremity Injury, Lower Stated Complaint: left leg injury/pain Time Seen by Provider: 07/10/21 11:19 History of Present Illness HPI Narrative: 36 y/o female presents to the ER today for complaints of pain and swelling to left knee and left calf. She had been having swelling in the left knee for about a week and a half. On Wednesday, she started having pain behind her knee and it has progressed into her calf area. She has increased pain with movement and weight bearing. She had surgery on the left knee in the fall of last year for repair of a meniscal injury. She is scheduled to see her ortho tomorrow related to this new problem. They wanted her to get checked in the ER today to make sure she doesn't have a blood clot. Related Data Allergies Allergy/AdvReac Type Severity Reaction Status Date / Time bee venom protein (honey bee) Allergy Severe Anaphylactic Verified 07/10/21 11:08 Shock soy Allergy Mild Rash Verified 07/10/21 11:08 peanut Allergy Unknown NUTS Verified 07/10/21 11:08 CAUSE RASH metoclopramide AdvReac Mild jitters Verified 07/10/21 11:08 Review of Systems Constitutional: Constitutional: Denies chills, Denies fever(s) and Denies weakness ENT: Reports system reviewed and no additional complaints, except as documented Cardiovascular: Cardiovascular: Denies chest pain Respiratory: Respiratory: Denies dyspnea Gastrointestinal: Gastrointestinal: Denies constipation, Denies diarrhea, Denies nausea and Denies vomiting Musculoskeletal: Musculoskeletal: Reports as per HPI Integumentary/Breasts: Skin/Breast: Denies rash Neurologic: Denies focal weakness and Denies numbness Psychiatric: Psychiatric: Reports no additional psychiatric complaints Endocrine: Endocrine: Reports no additional endocrine complaints Hematologic/Lymphatic: Hematologic/Lymphatic: Denies easy bleeding and Denies easy bruising Allergic/Immunologic: Allergic/Immunologic: Reports no additional allergic/immunologic complaints [facility] Past Medical History Medical History (Updated 07/10/21 @ 13:14 by Zoë Lujan APRN) Anxiety Back pain Brain abscess Bronchitis Fibroids Foot fracture, right History of pneumonia Jaquez syndrome Ovarian cyst Pneumonia UTI (urinary tract infection) Surgical History Surgical History History of hysterectomy Hx of appendectomy Hx of brain surgery surgical removal of brain abscess Hx of section Hx of foot surgery hardware in rt foot Hx of tonsillectomy Family History Family History Grandparent Family history of malignant neoplasm of breast Family history of malignant neoplasm of ovary Social History Social History Alcohol intake: never Gender identity (if verbalized by the patient): Female Exam Const: General: no acute distress Orientation/consciousness: patient oriented x3 HENMT: Head: normal to inspection Eyes: Conjunctivae: conjunctivae normal Neck: Neck: normal visual inspection Chest: Chest palpation & inspection: normal inspection of the chest Resp: Effort & Inspection: normal respiratory effort Auscultation: clear to auscultation bilaterally Cardio: Rate: regular rate Rhythm: regular rhythm GI: GI Palp: Yes Soft to palpation, No Tenderness to palpation present (GI) and No Guarding due to palpation present (GI) Auscultation: normal bowel sounds Skin: General skin exam: normal color Rashes: rash noted Neuro: General: patient oriented x3, moves all extremities and no focal motor deficits Extrem: Other: left knee with moderate swelling, mild medial tenderness, no erythema, limited ROM due to pain, no joint instability noted on exam, mild swelling left lower leg, calf tenderness Psych: Appearance: grossly normal Affect:
[2021-07-10 13:20] VITALS: BP 144/74; PULSE 87; RESP 16; O2SAT 100
== END 2021-07-10 13:21 | disposition home or self-care (01) ==
PROVIDERS: Emergency Provider Nurse Practitioner Family
DX: M79.662 Pain in left lower leg (principal); M25.562 Pain in left knee; M79.89 Other specified soft tissue disorders; Z87.440 Personal history of urinary (tract) infections; Z87.01 Personal history of pneumonia (recurrent)
CPT/HCPCS: 73562; 93971; 99284

== ENCOUNTER 2021-07-21 18:26 | Emergency (ER) | payer OTHER, SELFPAY ==
--- NOTE | ~2021-07-21 | XR_ITS ---
EXAM: XR knee LT min 4V HISTORY: FELL FORWARD 07/21/21. TWISTED. PAIN SINCE. COMPARISON: 07/10/2021 FINDINGS: Subjectively decreased mineralization. Mild medial joint space narrowing. Moderate volume joint fluid. No fracture or dislocation. No lytic or blastic lesion. Stable mild lateral patellar sub luxation. IMPRESSION: No acute process identified in the left knee. Stable moderate left knee joint effusion and osteopenia . Reviewed, dictated and finalized at location K. IMPRESSION: No acute process identified in the left knee. Stable moderate left knee joint e ffusion and osteopenia.
--- NOTE | ~2021-07-21 | XR_ITS ---
EXAM: XR ankle LT min 3V HISTORY: FELL FORWARD 07/21/21. TWISTED KNEE/ANKLE PAIN. COMPARISON: None available FINDINGS: Osteopenia. No acute fracture or dislocation. Joint spaces maintained. Normal soft tissues . IMPRESSION: No acute osseous finding in the left ankle. Reviewed, dictated and finalized at location K.
--- NOTE | 2021-07-21 18:30 | ED.LOWEXIN ---
HPI - Extremity Injury (Lower) General Chief Complaint: Extremity Injury, Lower Stated Complaint: Fall Injury/Left Knee Time Seen by Provider: 07/21/21 19:31 Source: patient and RN notes reviewed Mode of arrival: ambulatory Limitations: no limitations History of Present Illness HPI Narrative: 36-year-old female presents with concern for left knee pain and left ankle pain after an injury today. Reports she fell while wrestling with her dog. She reports that she has had recent problems with that knee, she had surgery on the knee for meniscus repair in January and last week had a Cotton's cyst that ruptured. Reports she has an orthopedic provider that she sees who recommended she had x-rays. She reports she has been using a crutch to avoid bearing weight on the extremity MD complaint: knee injury and ankle injury Related Data Allergies Allergy/AdvReac Type Severity Reaction Status Date / Time bee venom protein (honey bee) Allergy Severe Anaphylactic Verified 07/10/21 11:08 Shock soy Allergy Mild Rash Verified 07/10/21 11:08 peanut Allergy Unknown NUTS Verified 07/10/21 11:08 CAUSE RASH metoclopramide AdvReac Mild jitters Verified 07/10/21 11:08 Review of Systems Review of Systems: CONSTITUTIONAL: Denies malaise, chills, sweats, or fever. SKIN: Denies rash or itching, open skin, laceration, abrasion, redness, warmth, swelling. MUSCULOSKELETAL: Reports left knee pain and swelling and left ankle pain and swelling NEUROLOGIC: Denies numbness, weakness All systems reviewed & are unremarkable except as noted in HPI and below PMFSH Past Medical History Medical History (Updated 07/21/21 @ 20:03 by Tory Garner NP) Anxiety Back pain Brain abscess Bronchitis Fibroids Foot fracture, right History of pneumonia Jaquez syndrome Ovarian cyst Pneumonia UTI (urinary tract infection) Surgical History Surgical History History of hysterectomy Hx of appendectomy Hx of brain surgery surgical removal of brain abscess Hx of section Hx of foot surgery hardware in rt foot Hx of tonsillectomy Family History Family History Grandparent Family history of malignant neoplasm of breast Family history of malignant neoplasm of ovary Social History Social History Alcohol intake: never Gender identity (if verbalized by the patient): Female Comments At time of signature, agree with nursing past medical, surgical, social and family history. There is no relevant family history pertinent to the presenting complaint Exam Narrative: GENERAL: Well-appearing, well-nourished, and in no acute distress. HEAD: Normocephalic, atraumatic. EYES: PERRLA, conjunctivae clear NECK: Supple. CHEST: Speaks in full sentences. No respiratory distress. HEART: Regular rate and rhythm. Normal and equal peripheral pulses. EXTREMITIES: Left knee has normal sensation, limited range of motion. Mild anterior edema, no ecchymosis. Normal sensation with sensitivity to light touch and pain. Anterior tenderness. No open wounds, no skin tenting, no devitalized tissue or atrophy, no trophic changes, no obvious deformity, alignment normal, nearby joints and structures intact. Distal pulses palpable and equal bilaterally, skin warm, dry, pink. Capillary refill less than 3 seconds. Left ankle, foot, digits have grossly has normal strength and sensation, limited range of motion. No edema or ecchymosis. 5/5 strength with ankle and digit flexion and extension. Normal sensation with sensitivity to light touch and pain. Lateral tenderness. No open wounds, no skin tenting, no devitalized tissue or atrophy, no trophic changes, no obvious deformity, alignment normal, nearby joints and structures intact. Distal pulses palpable and equal bilaterally, skin warm, dry, pink. Capillary refill less
[2021-07-21 18:50] VITALS: BP 122/74; PULSE 89; RESP 20; TEMP 36.9; O2SAT 100
== END 2021-07-21 20:08 | disposition home or self-care (01) ==
PROVIDERS: Emergency Provider Nurse Practitioner
DX: S89.92XA Unspecified injury of left lower leg, initial encounter (principal); S99.912A Unspecified injury of left ankle, initial encounter; W19.XXXA Unspecified fall, initial encounter
CPT/HCPCS: 73564; 73610; 99214; G0463

== ENCOUNTER 2021-07-25 09:50 | Emergency (ER) | payer OTHER, SELFPAY ==
[2021-07-25 09:56] VITALS: BP 111/73; PULSE 104; RESP 16; TEMP 37.4; O2SAT 97
--- NOTE | 2021-07-25 10:02 | ED.URI ---
HPI - URI/Sore Throat General Chief Complaint: Upper Respiratory Infection Stated Complaint: aches headache Time Seen by Provider: 07/25/21 10:03 Source: patient Mode of arrival: ambulatory Limitations: no limitations History of Present Illness HPI Narrative: Ms. Garcia is a 36-year-old female patient presenting with complaints of headache and body aches x1 day. Her daughter is also sick with fever, cough, runny nose, and abdomen discomfort. Daughter has had direct exposure to influenza A. She denies any fever. MD elicited complaint: sore throat and nasal congestion Related Data Home Medications Medication Instructions Recorded Confirmed celecoxib 200 mg PO DAILY 07/25/21 07/25/21 Allergies Allergy/AdvReac Type Severity Reaction Status Date / Time bee venom protein (honey bee) Allergy Severe Anaphylactic Verified 07/25/21 10:19 Shock soy Allergy Mild Rash Verified 07/25/21 10:19 peanut Allergy Unknown NUTS Verified 07/25/21 10:19 CAUSE RASH metoclopramide AdvReac Mild jitters Verified 07/25/21 10:19 Review of Systems Review of Systems: Pertinent positives per HPI. Patient denies any fever, chills, rash,visual changes, dizziness, cough, shortness of breath, chest pain, palpitations, nausea, vomiting, diarrhea, constipation, abdominal pain, or any urinary issues. [facility] Past Medical History Medical History (Updated 07/25/21 @ 10:44 by Joel Pierson APRN) Anxiety Back pain Brain abscess Bronchitis Fibroids Foot fracture, right History of pneumonia Jaquez syndrome Ovarian cyst Pneumonia UTI (urinary tract infection) Surgical History Surgical History History of hysterectomy Hx of appendectomy Hx of brain surgery surgical removal of brain abscess Hx of section Hx of foot surgery hardware in rt foot Hx of tonsillectomy Family History Family History Grandparent Family history of malignant neoplasm of breast Family history of malignant neoplasm of ovary Social History Social History Alcohol intake: never Gender identity (if verbalized by the patient): Female Comments At the time of my signature, I reviewed and agree with the nursing past medical, surgical, social, and family history. There is no relevant family history pertinent to the patient complaint. Exam Narrative: General: Well-developed, well nourished, in no apparent distress Head: Normocephalic, atraumatic Eyes: Pupils equally round and reactive to light bilaterally, EOM intact, sclera and conjunctive clear, no discharge, lids normal Ears: TMs intact, dull, red, ear canals clear, no drainage, grossly hearing normal. Nose: Nares patent, clear discharge, no inflammation, no sinus tenderness. Mouth: Oral pharynx without lesions or masses, good dentition, MMM. Oropharynx red, tonsils surgically absent Neck: Supple, trachea midline, no enlargement of anterior or posterior cervical nodes, no thyroid masses or goiter palpable. Cardio: Regular rate and rhythm, s1 and s2 normal, no murmur appreciated. Resp: Clear to auscultation bilaterally, no rhonchi, rales, wheezing or rubs Course Course Emergency Course: Portions of this record may have been created with voice recognition software. Level of Care: Express Care Visit Vital Signs Vital signs: Vital signs reviewed MDM - URI/Sore Throat MDM Narrative Medical decision making narrative: At the time of visit patient is resting comfortably in the exam chair. She reports she is having headaches and body aches. Daughter tested positive for strep in the office. Influenza a negative. Strep screen is positive in the clinic patient has had a history of tonsillectomy. Differential Diagnosis Differential diagnosis: Likely upper respiratory infection, croup, sinusitis, viral inf
== END 2021-07-25 10:45 | disposition home or self-care (01) ==
PROVIDERS: Emergency Provider Nurse Practitioner Family
DX: J02.0 Streptococcal pharyngitis (principal)
CPT/HCPCS: 87804; 87880; 99213; G0463

== ENCOUNTER 2021-09-18 19:43 | Emergency (ER) | payer OTHER, SELFPAY ==
[2021-09-18 19:58] VITALS: BP 116/91; PULSE 100; RESP 20; TEMP 36.7; O2SAT 100
--- NOTE | 2021-09-18 20:42 | PC.NURSE ---
patient left without being seen. states that she is going to go to another hospital because of the wait
== END 2021-09-18 20:42 ==
LOC: ANHED 20:45
DX: R11.2 Nausea with vomiting, unspecified (principal)
CPT/HCPCS: 99199

== ENCOUNTER 2021-09-19 08:28 | Emergency (ER) | payer OTHER, SELFPAY ==
--- NOTE | ~2021-09-19 | CT_ITS ---
Septic EXAMINATION: CT abdomen pelvis wo con DATE: 09/19/2021 09:42 INDICATION: Nausea, vomiting and diarrhea TECHNIQUE: Computed tomography (CT) of the abdomen and pelvis was performed without intravenous contr ast. The dose-length product was 394.34 mGy-cm. Automated exposure control and iterative reconstructi on technique were employed. COMPARISON: CT dated 02/18/2021. FINDINGS: There is bilateral lower lobe atelectasis. Heart size normal. No significant pleural or per icardial effusion. The liver, spleen, pancreas, adrenal glands and kidneys are unremarkable. There is a small fat-containing umbilical hernia. Nonobstructive bowel gas pattern. Status post appendectomy. No abnormal pelvic masses or fluid collections. No free air or free fluid. No acute osseous abnormal ity. No significant vascular abnormality. No lymphadenopathy. IMPRESSION: 1. No acute abdominal abnormality. Reviewed, dictated and finalized at location A.
[2021-09-19 08:39] VITALS: BP 130/87; PULSE 90; RESP 17; TEMP 36.5; O2SAT 96
--- NOTE | 2021-09-19 08:46 | PC.NURSE ---
ERP at bedside for initial assessment
[2021-09-19] MEDS: PANTOPRAZOLE SODIUM IV 40 MG VIAL IV PUSH (09:18)
[2021-09-19] MEDS: ONDANSETRON INJ 4 MG/2 ML VIAL IV PUSH (09:18)
[2021-09-19] MEDS: SODIUM CHLORIDE 0.9% IV 1,000 ML 999 ML IV CONT (09:18)
[2021-09-19 09:23] LABS: Basophils Absolute Auto 0.01 K/mm3 (0.00-0.10); Basophils Percent Auto 0.2 % (0.0-1.0); Eosinophils Absolute Auto 0.02 K/mm3 (0.02-0.50); Eosinophils Percent Auto 0.4 % (1.0-6.0); Hematocrit 43.6 % (35.0-49.0); Hemoglobin 14.6 g/dL (12.0-15.0); Immature Granulocyte Absolute 0.01 K/mm3 (0.00-0.00); Immature Granulocyte Percent A 0.2 % (0.0-0.0); Lymphocytes Absolute Auto 0.95 K/mm3 (1.10-4.50); Lymphocytes Percent Auto 19.9 % (18.0-42.0); Mean Corpuscular HGB Conc 33.5 g/dL (32.0-36.0); Mean Corpuscular Hemoglobin 30.2 pg (27.0-31.0); Mean Corpuscular Volume 90.3 fL (78.0-102.0); Mean Platelet Volume 9.5 fl (9.2-11.8); Monocytes Absolute Auto 0.56 K/mm3 (0.10-0.90); Monocytes Percent Auto 11.7 % (2.0-11.0); Neutrophils Absolute Auto 3.2 K/mm3 (1.7-7.2); Neutrophils Percent Auto 67.6 % (50.0-70.0); Platelet Count Result 158 K/mm3 (150-420); Red Blood Count 4.83 M/mm3 (4.20-5.40); Red Cell Distribution Width 12.2 % (11.6-14.4); White Blood Count 4.8 K/mm3 (4.8-10.8)
[2021-09-19 09:25] LABS: Add Urine Microscopic? YES; Appearance Urine Clear (Clear); Bilirubin Urine 1+ (Negative); Blood Urine 2+ (Negative); Color Urine Yellow (Yellow); Glucose Urine UA Negative (Negative); Ketones Urine 2+ (Negative); Leukocyte Esterase Ur Negative LEU/UL (Negative); Nitrate Urine Negative (Negative); Protein Urine 1+ (Negative); Specific Grav Ur >= 1.030 (1.010-1.020); Urobilinogen Urine 0.2 mg/dL (0.2-1.0)
[2021-09-19 09:31] LABS: Bacteria Urine 1+ /hpf; Squamous Epithelial Cell Urine Few /hpf (Few); White Blood Cell Casts Urine Present /lpf
[2021-09-19 09:45] LABS: Alanine Aminotransferase 23 U/L (14-59); Alkaline Phosphatase 110 U/L (46-116); Anion Gap 13 mmol/L (8-16); Aspartate Amino Transferase 29 U/L (15-37); Bilirubin,Total 0.3 mg/dL (0.00-1.00); Blood Urea Nitrogen 22 mg/dL (7-18); Calcium 9.4 mg/dL (8.5-10.1); Carbon Dioxide 21 mmol/L (21-32); Chloride 99 mmol/L (98-108); Estimated Glomerular Filt Rate > 60; Glucose 76 mg/dL (70-99); Lipase 83 U/L (73-393); Osmolality Calculated 278 mOsm/kg (285-295); Potassium 3.5 mmol/L (3.5-5.1); Sodium 133 mmol/L (136-145); Total Protein 7.6 g/dL (6.4-8.2)
[2021-09-19 09:50] LABS: Lactic Acid Reflex 0.7 mmol/L (0.4-2.0)
[2021-09-19 09:54] LABS: SPREG INTERNAL CONTROL Positive; Serum Qual hCG Negative
[2021-09-19 11:03] VITALS: BP 111/87
--- NOTE | 2021-09-19 11:10 | ED.NAVMDI ---
HPI - Nausea/Vomiting/Diarrhea General Chief complaint: Nausea/Vomiting/Diarrhea Stated complaint: nausea,vomiting, weakness, abd pain,extremity pain Time Seen by Provider: 09/19/21 08:32 Source: patient and RN notes reviewed Mode of arrival: ambulatory Limitations: no limitations History of Present Illness MD elicited complaint: nausea, vomiting, diarrhea and abdominal pain Onset (ago): day(s) (4) Description of vomiting: food contents Description of diarrhea: semi-solid Associated nausea: Yes Location of pain: suprapubic Radiation: does not radiate Pain consistency: colicky Severity: mild Pain scale (0-10): 3 Quality: cramping and aching Exacerbating factors: none Relieving factors: none Associated symptoms: denies other symptoms, nausea/vomiting and weakness Related Data Allergies Allergy/AdvReac Type Severity Reaction Status Date / Time bee venom protein (honey bee) Allergy Severe Anaphylactic Verified 09/19/21 08:34 Shock soy Allergy Mild Rash Verified 09/19/21 08:34 peanut Allergy Unknown NUTS Verified 09/19/21 08:34 CAUSE RASH metoclopramide AdvReac Mild jitters Verified 09/19/21 08:34 Review of Systems Review of Systems: All systems reviewed & are unremarkable except as noted in HPI and below Constitutional: Constitutional: Reports no additional constitutional complaints Eyes: Eyes: Reports no additional eye complaints ENT: Reports system reviewed and no additional complaints, except as documented Cardiovascular: Cardiovascular: Reports no additional cardiovascular complaints Respiratory: Respiratory: Reports no additional respiratory complaints Gastrointestinal: Gastrointestinal: Reports no additional gastrointestinal complaints Genitourinary: Genitourinary: Reports no additional female genitourinary complaints Musculoskeletal: Musculoskeletal: Reports no additional musculoskeletal complaints Integumentary/Breasts: Skin/Breast: Reports system reviewed and no additional complaints, except as docu Neurologic: Reports system reviewed and no additional complaints, except as documented Psychiatric: Psychiatric: Reports no additional psychiatric complaints Endocrine: Endocrine: Reports no additional endocrine complaints Hematologic/Lymphatic: Hematologic/Lymphatic: Reports no additional hematologic/lymphatic complaints Allergic/Immunologic: Allergic/Immunologic: Reports no additional allergic/immunologic complaints [facility] Past Medical History Medical History (Updated 09/19/21 @ 11:33 by Jag Bragg MD) Anxiety Back pain Brain abscess Bronchitis Fibroids Foot fracture, right History of pneumonia Jaquez syndrome Ovarian cyst Pneumonia UTI (urinary tract infection) Viral gastroenteritis Surgical History Surgical History History of hysterectomy Hx of appendectomy Hx of brain surgery surgical removal of brain abscess Hx of section Hx of foot surgery hardware in rt foot Hx of tonsillectomy Family History Family History Grandparent Family history of malignant neoplasm of breast Family history of malignant neoplasm of ovary Social History Social History Alcohol intake: never Gender identity (if verbalized by the patient): Female Exam Const: General: healthy appearing and no acute distress Nutritional Appearance: well nourished Orientation/consciousness: patient oriented x3 Limitations: no limitations HENMT: Head: normal to inspection Ears: external ears normal, TM's normal bilaterally and EAC's normal General nose exam: Normal external nose present and Normal nares present Face and sinus: normal facial exam and sinuses nontender Mouth: Yes Normal oral and palatal mucosa present and Yes moist mucous membranes Teeth and gingiva: dentition normal Throat: posterior orop
[2021-09-19] MEDS: ACETAMINOPHEN 325 MG TABLET 650 MG PO (11:12)
[2021-09-19 11:32] VITALS: BP 102/75; PULSE 73; RESP 16; TEMP 36.4; O2SAT 98
== END 2021-09-19 11:34 | disposition home or self-care (01) ==
PROVIDERS: Emergency Provider Emergency Medicine
DX: N39.0 Urinary tract infection, site not specified (principal); K52.9 Noninfective gastroenteritis and colitis, unspecified
CPT/HCPCS: 36415; 74176; 80053; 81001; 83605; 83690; 84703; 85025; 87086; 87088; 96361; 96365; 96375; 99284; A9270; C9113; J0696; J2405; J7030

== ENCOUNTER 2022-05-10 22:26 | Emergency (ER) | payer OTHER, SELFPAY ==
[2022-05-10 22:30] VITALS: BP 142/88; PULSE 113; RESP 18; TEMP 36.4; O2SAT 100
--- NOTE | 2022-05-10 22:37 | ED.SKABFB ---
HPI - Skin/Abscess/Foreign Bdy General Chief complaint: Skin/Abscess/Foreign Body Stated complaint: rash Time Seen by Provider: 05/10/22 22:33 History of Present Illness HPI narrative: 37-year-old female presents to the emergency room for multiple complaints. Patient states that she has noticed a painful rash to her left foot been there for about a week. Started off as red bumps was surrounding erythema, over the course of the week the scabbed over. Patient has noticed similar rashes to both legs. Patient states that she is also noticed a red, raised pruritic areas to her left elbow and right arm. Has been taking Benadryl with minimal relief. Related Data Allergies Allergy/AdvReac Type Severity Reaction Status Date / Time bee venom protein (honey bee) Allergy Severe Anaphylactic Verified 05/10/22 22:34 Shock soy Allergy Mild Rash Verified 05/10/22 22:34 peanut Allergy Unknown NUTS Verified 05/10/22 22:34 CAUSE RASH metoclopramide AdvReac Mild jitters Verified 05/10/22 22:34 Review of Systems Review of Systems: CONSTITUTIONAL: Denies fever, chills, or sweats. EYES: Denies visual changes, redness, or discharge. ENT: Denies rhinorrhea, congestion, sore throat, or otalgia. CARDIOVASCULAR: Denies chest pain, palpitations, or edema. RESPIRATORY: Denies cough or dyspnea. GASTROINTESTINAL: Denies abdominal pain, nausea, vomiting, or diarrhea. GENITOURINARY: Denies dysuria or hematuria. SKIN: Reports rash or itching. MUSCULOSKELETAL: Denies back pain, joint pain, or myalgia. NEUROLOGIC: Denies headache, numbness, dizziness, or weakness. PSYCHIATRIC: Denies anxiety or depression. [facility] Past Medical History Medical History Anxiety Back pain Brain abscess Bronchitis Fibroids Foot fracture, right History of pneumonia Jaquez syndrome Ovarian cyst Pneumonia UTI (urinary tract infection) Viral gastroenteritis Surgical History Surgical History History of hysterectomy Hx of appendectomy Hx of brain surgery surgical removal of brain abscess Hx of section Hx of foot surgery hardware in rt foot Hx of tonsillectomy Family History Family History Grandparent Family history of malignant neoplasm of breast Family history of malignant neoplasm of ovary Social History Social History Alcohol intake: never Gender identity (if verbalized by the patient): Female Exam Narrative: GENERAL: Well-appearing, well-nourished, no physical limitations, and in no acute distress. HEAD: Normocephalic, atraumatic. EYES: Conjunctivae normal, PERRLA and EOMI. CHEST: Clear to auscultation. No respiratory distress. No wheezes rales or rhonchi. HEART: Regular rate and rhythm. No murmur heard. Normal peripheral pulses. EXTREMITIES: Normal range of motion. No edema. No clubbing or cyanosis SKIN: left foot, bilat LE: Scattered areas of maculopapular lesions that are scabbed over with surrounding erythema. right elbow: Large erythematous raised area to the posterior left upper extremity with defined borders NEURO: No focal deficits. Alert and oriented x3. MAEW. CN's II-XI intact bilaterally, normal gait PSYCH: Cooperative. Normal mood and affect. Course Vital Signs Vital signs: Vital Signs Temperature 36.4 C 05/10/22 22:30 Pulse Rate 113 H 05/10/22 22:30 Respiratory Rate 18 05/10/22 22:30 Blood Pressure 142/88 H 05/10/22 22:30 Pulse Oximetry 100 05/10/22 22:30 Oxygen Delivery Room Air 05/10/22 22:30 Temperature 36.4 C 05/10/22 22:30 Pulse Rate 113 H 05/10/22 22:30 Respiratory Rate 18 05/10/22 22:30 Blood Pressure 142/88 H 05/10/22 22:30 Pulse Oximetry 100 05/10/22 22:30 Oxygen Delivery Room Air 05/10/22 22:30 Discharge Plan Discharge Clinical Impressio
== END 2022-05-10 22:43 | disposition home or self-care (01) ==
LOC: ANHED 22:37
PROVIDERS: Emergency Provider Nurse Practitioner Family
DX: L50.9 Urticaria, unspecified (principal); L03.116 Cellulitis of left lower limb; B95.62 Methicillin resistant Staphylococcus aureus infection as the cause of diseases classified elsewhere; Z15.09 Genetic susceptibility to other malignant neoplasm; Z87.01 Personal history of pneumonia (recurrent); Z87.440 Personal history of urinary (tract) infections; Z90.710 Acquired absence of both cervix and uterus
CPT/HCPCS: 99283

== ENCOUNTER 2022-06-13 15:37 | Emergency (ER) | payer OTHER, SELFPAY ==
[2022-06-13 15:49] VITALS: BP 103/75; PULSE 94; RESP 20; TEMP 36.8; O2SAT 98
--- NOTE | 2022-06-13 16:13 | ED.URI ---
HPI - URI/Sore Throat General Chief Complaint: Upper Respiratory Infection Stated Complaint: sore/swollen throat Time Seen by Provider: 06/13/22 16:13 History of Present Illness HPI Narrative: patient presents with fever and sore throat no drooling and no trouble swallowing no other c/o voiced Related Data Allergies Allergy/AdvReac Type Severity Reaction Status Date / Time bee venom protein (honey bee) Allergy Severe Anaphylactic Verified 06/13/22 15:51 Shock soy Allergy Mild Rash Verified 06/13/22 15:51 peanut Allergy Unknown NUTS Verified 06/13/22 15:51 CAUSE RASH metoclopramide AdvReac Mild jitters Verified 06/13/22 15:51 Review of Systems Review of Systems: CONSTITUTIONAL: Denies fever, chills, or sweats. EYES: Denies visual changes, redness, or discharge. ENT: Denies rhinorrhea, congestion, sore throat, or otalgia. CARDIOVASCULAR: Denies chest pain, palpitations, or edema. RESPIRATORY: Denies cough or dyspnea. GASTROINTESTINAL: Denies abdominal pain, nausea, vomiting, or diarrhea. GENITOURINARY: Denies dysuria or hematuria. SKIN: Denies rash or itching. MUSCULOSKELETAL: Denies back pain, joint pain, or myalgia. NEUROLOGIC: Denies headache, numbness, or weakness. PSYCHIATRIC: Denies anxiety or depression. [facility] Past Medical History Medical History Anxiety Back pain Brain abscess Bronchitis Fibroids Foot fracture, right History of pneumonia Jaquez syndrome Ovarian cyst Pneumonia UTI (urinary tract infection) Viral gastroenteritis Surgical History Surgical History History of hysterectomy Hx of appendectomy Hx of brain surgery surgical removal of brain abscess Hx of section Hx of foot surgery hardware in rt foot Hx of tonsillectomy Family History Family History Grandparent Family history of malignant neoplasm of breast Family history of malignant neoplasm of ovary Social History Social History Alcohol intake: never Gender identity (if verbalized by the patient): Female Comments At time of signature, agree with nursing past medical, surgical, social and family history. There is no relevant family history pertinent to the presenting complaint Exam Narrative: GENERAL: Well-appearing, well-nourished, and in no acute distress. HEAD: Normocephalic, atraumatic. EYES: PERRLA and EOMI. ENT: Nares clear, no rhinorrhea or epistaxis. Mucous membranes moist. Mild pharyngeal erythema no exudate no trismus can open mouth fully no drooling NECK: Supple. CHEST: Clear to auscultation. No respiratory distress. HEART: Regular rate and rhythm. No murmur heard. Normal peripheral pulses. ABDOMEN: Soft, nontender, nondistended, normal active bowel sounds. EXTREMITIES: Normal range of motion. No edema. SKIN: Warm, dry, no rash. NEURO: No focal deficits. Alert and oriented x3. Ulen Coma Scale Eye Opening: Spontaneous 4 Aliyah Coma Scale Motor: Obeys Commands 6 Ulen Coma Scale Verbal: Oriented 5 Aliyah Coma Scale Total 15 Course Course Level of Care: Express Care Visit Vital Signs Vital signs: Vital Signs Temperature 36.8 C 06/13/22 15:49 Pulse Rate 94 06/13/22 15:49 Respiratory Rate 20 06/13/22 15:49 Blood Pressure 103/75 06/13/22 15:49 Pulse Oximetry 98 06/13/22 15:49 Oxygen Delivery Room Air 06/13/22 15:49 Temperature 36.8 C 06/13/22 15:49 Pulse Rate 94 06/13/22 15:49 Respiratory Rate 20 06/13/22 15:49 Blood Pressure 103/75 06/13/22 15:49 Pulse Oximetry 98 06/13/22 15:49 Oxygen Delivery Room Air 06/13/22 15:49 MDM - URI/Sore Throat Differential Diagnosis Differential diagnosis: Likely upper respiratory infection, croup, otitis media, sinusitis, viral infection, bronchitis, influenza and pharyngitis [place]
[2022-06-13 17:43] VITALS: BP 103/75; PULSE 94; RESP 20; TEMP 36.8; O2SAT 98
== END 2022-06-13 16:20 | disposition home or self-care (01) ==
PROVIDERS: Emergency Provider Nurse Practitioner Family
DX: J02.9 Acute pharyngitis, unspecified (principal)
CPT/HCPCS: 87081; 87880; 99213; G0463

== ENCOUNTER 2022-07-02 10:09 | Emergency (ER) | payer OTHER, SELFPAY ==
[2022-07-02 10:15] VITALS: BP 122/77; PULSE 81; RESP 18; TEMP 37; O2SAT 98
--- NOTE | 2022-07-02 10:29 | ED.SKABFB ---
HPI - Skin/Abscess/Foreign Bdy General Chief complaint: Skin/Abscess/Foreign Body Stated complaint: rash that comes back Source: patient and RN notes reviewed History of Present Illness HPI narrative: 37 yo F presents to urgent care with complaints of a recurring rash. Pt states this is the 3rd time she has had it and it popped up yesterday. Pt presents with a couple patches to her left lower leg and left upper arm. Pt states the rash will start with a red area and black dot in the center. Pt states the dot will scab over. Denies any drainage from the areas. Pt was given prednisone and amoxicillin last time ( a few months ago) with good relief. Pt denies any fevers, chills, vomiting. Denies any change in soaps, lotions, detergents, foods, or medications. Related Data Allergies Allergy/AdvReac Type Severity Reaction Status Date / Time bee venom protein (honey bee) Allergy Severe Anaphylactic Verified 07/02/22 10:26 Shock soy Allergy Mild Rash Verified 07/02/22 10:26 peanut Allergy Unknown NUTS Verified 07/02/22 10:26 CAUSE RASH metoclopramide AdvReac Mild jitters Verified 07/02/22 10:26 Review of Systems Review of Systems: CONSTITUTIONAL: Denies fever, chills, or sweats. EYES: Denies visual changes, redness, or discharge. ENT: Denies otalgia and sore throat CARDIOVASCULAR: Denies chest pain, palpitations, or edema. RESPIRATORY: Denies cough or dyspnea. GASTROINTESTINAL: Denies abdominal pain, nausea, vomiting, or diarrhea. GENITOURINARY: Denies dysuria or hematuria. SKIN: Itchy rash MUSCULOSKELETAL: Denies back pain, joint pain, or myalgia. NEUROLOGIC: Denies headache, numbness, or weakness. [facility] Past Medical History Medical History Anxiety Back pain Brain abscess Bronchitis Fibroids Foot fracture, right History of pneumonia Jaquez syndrome Ovarian cyst Pneumonia UTI (urinary tract infection) Viral gastroenteritis Surgical History Surgical History History of hysterectomy Hx of appendectomy Hx of brain surgery surgical removal of brain abscess Hx of section Hx of foot surgery hardware in rt foot Hx of tonsillectomy Family History Family History Grandparent Family history of malignant neoplasm of breast Family history of malignant neoplasm of ovary Social History Social History Alcohol intake: never Gender identity (if verbalized by the patient): Female Comments At the time of my signature, I reviewed and agree with the nursing past medical, surgical, social, and family history. There is no relevant family history pertinent to the patient complaint. Exam Narrative: GENERAL: This is a well-nourished, well-developed patient, in no apparent distress. HEAD: normocephalic, atraumatic. EYES: Sclera clear/white. Vision is grossly intact. EARS: External ears normal, auditory canals clear and without drainage, TMs normal without perforation. Hearing grossly intact. NOSE: External nose normal with no obvious nasal discharge, nares without redness, no rhinorrhea. THROAT: Mucous membranes moist, posterior pharynx clear. NECK: Neck supple, non-tender without lymphadenopathy, masses or thyromegaly. CARDIOVASCULAR: Regular rate and rhythm without murmurs, gallops, or rubs. RESPIRATORY: Clear to auscultation. Breath sounds equal bilaterally. No wheezes, rales, or rhonchi. GASTROINTESTINAL: Abdomen soft, non-tender, nondistended. Bowel sounds are active. No hepato-splenomegaly, or palpable masses. No guarding. SKIN: warm, intact with no suspicious lesions or rash, good texture and turgor. circular areas of erythema to left lower leg and left upper arm; biggest patch being approximately 3 cm in diameter. One area has black dot center. Well demarcated. NEURO: awake, alert, an
== END 2022-07-02 10:50 | disposition home or self-care (01) ==
PROVIDERS: Emergency Provider Nurse Practitioner Family
DX: S80.862A Insect bite (nonvenomous), left lower leg, initial encounter (principal); S40.862A Insect bite (nonvenomous) of left upper arm, initial encounter; W57.XXXA Bitten or stung by nonvenomous insect and other nonvenomous arthropods, initial encounter
CPT/HCPCS: 99213; G0463

== ENCOUNTER 2022-10-26 14:26 | Emergency (ER) | payer OTHER, SELFPAY ==
[2022-10-26 14:38] VITALS: BP 109/71; PULSE 80; RESP 16; TEMP 36.5; O2SAT 100
--- NOTE | 2022-10-26 15:02 | ED.URI ---
HPI - URI/Sore Throat General Chief Complaint: Upper Respiratory Infection Stated Complaint: Cough/Cold Symptoms History of Present Illness HPI Narrative: patient presents with cough and congestion no shortness of breath and no chest pain patient is a smoker Related Data Allergies Allergy/AdvReac Type Severity Reaction Status Date / Time bee venom protein (honey bee) Allergy Severe Anaphylactic Verified 07/02/22 10:26 Shock soy Allergy Mild Rash Verified 07/02/22 10:26 peanut Allergy Unknown NUTS Verified 07/02/22 10:26 CAUSE RASH metoclopramide AdvReac Mild jitters Verified 07/02/22 10:26 Review of Systems Review of Systems: CONSTITUTIONAL: Denies chills, or sweats. Reports fever and generalized body aches EYES: Denies visual changes, redness, or discharge. ENT: Denies otalgia. Reports nasal congestion runny nose and sore throat CARDIOVASCULAR: Denies chest pain, palpitations, or edema. RESPIRATORY: Denies dyspnea. Reports occasional cough GASTROINTESTINAL: Denies abdominal pain, nausea, vomiting, or diarrhea. GENITOURINARY: Denies dysuria or hematuria. SKIN: Denies rash or itching. MUSCULOSKELETAL: Denies back pain, joint pain, or myalgia. Reports generalized body aches NEUROLOGIC: Denies headache, numbness, or weakness. PSYCHIATRIC: Denies anxiety or depression. [facility] Past Medical History Medical History Anxiety Back pain Brain abscess Bronchitis Fibroids Foot fracture, right History of pneumonia Jaquez syndrome Ovarian cyst Pneumonia UTI (urinary tract infection) Viral gastroenteritis Surgical History Surgical History History of hysterectomy Hx of appendectomy Hx of brain surgery surgical removal of brain abscess Hx of section Hx of foot surgery hardware in rt foot Hx of tonsillectomy Family History Family History Grandparent Family history of malignant neoplasm of breast Family history of malignant neoplasm of ovary Social History Social History Alcohol intake: never Gender identity (if verbalized by the patient): Female Comments At time of signature, agree with nursing past medical, surgical, social and family history. There is no relevant family history pertinent to the presenting complaint Exam Narrative: The patient is a well-developed, well-nourished in no acute distress. SKIN: Skin is warm and dry without erythema, swelling or exudate. There is good turgor. No tenting. HEAD: Atraumatic. Normocephalic. No temporal or scalp tenderness. EYES: Moist and bright. Sclera and conjunctivae normal. No discharge. PERRLA. Extraocular motions intact. Gross visual acuity intact. EARS: Pinna is normal shape and contour. Clear external auditory canals. TM pearly snow with good cone of light, no erythema or suppuration. Bilateral cerumen noted no gross hearing deficit. NOSE: pink, moist mucosa with good air movement. Clear rhinorrhea without nasal flaring. Septum midline. Mouth: moist mucous membranes. THROAT; mild erythema noted to posterior oropharynx with moderate postnasal drainage. Without exudate or ulceration.. Uvula midline. Normal movement of soft palate. NECK: Supple and nontender with full range of motion without discomfort. No meningeal signs. LUNGS: Equal and bilateral breath sounds without wheezes, rales or rhonchi. CHEST: The chest wall is without retractions or use of accessory muscles. HEART: Has a regular rate and rhythm without murmur, gallops, click or rub. ABDOMEN: Soft, nontender with positive active bowel sounds. No rebound tenderness. EXTREMITIES: Without cyanosis, clubbing or edema. Equal 2+ distal pulses and 2 second capillary refill noted. NEUROLOGIC: alert, active, . The patient moves all extremities with normal muscle strength
== END 2022-10-26 15:10 | disposition home or self-care (01) ==
PROVIDERS: Emergency Provider Nurse Practitioner Family
DX: J40 Bronchitis, not specified as acute or chronic (principal)
CPT/HCPCS: 99213; G0463

== ENCOUNTER 2023-07-02 11:39 | Emergency (ER) | payer OTHER, SELFPAY ==
[2023-07-02 11:47] VITALS: BP 127/91; PULSE 93; RESP 16; TEMP 37.2; O2SAT 99
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
== END 2023-07-02 12:32 | disposition home or self-care (01) ==
PROVIDERS: Emergency Provider Nurse Practitioner Family
DX: H11.31 Conjunctival hemorrhage, right eye (principal)
CPT/HCPCS: 99213; A9270; G0463

== ENCOUNTER 2023-10-25 15:28 | Emergency (ER) | payer OTHER, SELFPAY ==
[2023-10-25 15:44] VITALS: BP 132/90; PULSE 87; RESP 16; TEMP 36.3; O2SAT 99
--- NOTE | 2023-10-25 15:57 | ED.GENADULT ---
HPI - General Adult General Chief complaint: Upper Respiratory Infection Stated complaint: Body Aches/Congestion Time Seen by Provider: 10/25/23 15:58 Source: patient, RN notes reviewed and old records reviewed Mode of arrival: ambulatory Limitations: no limitations History of Present Illness HPI narrative: 38-year-old female presents to the [facility] with complaints of body aches, feeling fevers but did not take her temperature, diarrhea. Has been taking DayQuil Patient reports that she was sent home on Wednesday as well are left work today. 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 Onset (ago): day(s) (3) Treatments prior to arrival: other (NyQuil) Related Data Allergies Allergy/AdvReac Type Severity Reaction Status Date / Time bee venom protein (honey bee) Allergy Severe Anaphylactic Verified 07/02/23 11:59 Shock soy Allergy Mild Rash Verified 07/02/23 11:59 peanut Allergy Unknown NUTS Verified 07/02/23 11:59 CAUSE RASH metoclopramide AdvReac Mild jitters Verified 07/02/23 11:59 Review of Systems Review of Systems: All systems reviewed & are unremarkable except as noted in HPI and below Constitutional: Constitutional: Reports as per HPI, Reports body ache(s), Reports chills and Reports fatigue Eyes: Eyes: Reports no additional eye complaints ENT: Reports as per HPI Cardiovascular: Cardiovascular: Reports no additional cardiovascular complaints, Denies chest pain and Denies dyspnea Respiratory: Respiratory: Reports no additional respiratory complaints, Denies chest congestion, Denies cough and Denies dyspnea Gastrointestinal: Gastrointestinal: Reports no additional gastrointestinal complaints, Denies abdominal pain, Denies nausea and Denies vomiting Musculoskeletal: Musculoskeletal: Reports no additional musculoskeletal complaints Integumentary/Breasts: Skin/Breast: Reports system reviewed and no additional complaints, except as docu Neurologic: Reports system reviewed and no additional complaints, except as documented Psychiatric: Psychiatric: Reports no additional psychiatric complaints Allergic/Immunologic: Allergic/Immunologic: Reports no additional allergic/immunologic complaints PMFSH Past Medical History Medical History Anxiety Back pain Brain abscess Bronchitis Fibroids Foot fracture, right History of pneumonia Jaquez syndrome Ovarian cyst Pneumonia UTI (urinary tract infection) Viral gastroenteritis Surgical History Surgical History History of hysterectomy Hx of appendectomy Hx of brain surgery surgical removal of brain abscess Hx of section Hx of foot surgery hardware in rt foot Hx of tonsillectomy Family History Family History Grandparent Family history of malignant neoplasm of breast Family history of malignant neoplasm of ovary Social History Social History Alcohol intake: never Gender identity (if verbalized by the patient): Female Comments At the time of my signature, I reviewed and agree with the nursing past medical, surgical, social, and family history. There is no relevant family history pertinent to the patient complaint. Exam Const: General: cooperative, healthy appearing, comfortable, no acute distress, well developed, alert and well nourished Nutritional Appearance: well nourished Orientation/consciousness: patient oriented x3 Limitations: no limitations HENMT: Head: normal to inspection Ears: hearing grossly normal bilaterally, external ears normal, TM's normal bilaterally, EAC's normal, mastoids normal and no periauricular adenopathy Face/Nose/Sinus: Normal external nose present, Normal nares present, Normal nasal mucous membranes and turbinates present, normal facial exam, sinuses nontender and face
[2023-10-25 16:46] LABS: EDINFLUASCREEN Negative; EDINFLUBSCREEN Negative
== END 2023-10-25 16:05 | disposition home or self-care (01) ==
PROVIDERS: Emergency Provider Nurse Practitioner
DX: J06.9 Acute upper respiratory infection, unspecified (principal); Z20.822 Contact with and (suspected) exposure to COVID-19
CPT/HCPCS: 87426; 87804; 99213; G0463

== ENCOUNTER 2024-06-30 08:11 | Emergency (ER) | payer OTHER, SELFPAY ==
--- NOTE | ~2024-06-30 | XR_ITS ---
EXAMINATION: XR foot RT min 3V DATE: 06/30/2024 08:39 INDICATION: Right foot injury and pain. TECHNIQUE: 5 views of right foot were obtained. COMPARISON: Right ankle radiographs 04/05/2019 FINDINGS: Alignment is normal. No fracture. There is a screw between base of first metatarsal and med ial cuneiform. There is a screw between the medial and intermediate cuneiforms. There is a screw betw een the medial cuneiform and base of second metatarsal. There is mild osteoarthritis of talonavicular joint. IMPRESSION: 1. No acute fracture. 2. Arthrodesis procedures involving the medial midfoot and Lisfranc joint. Reviewed, dictated and finalized at location L.
--- NOTE | 2024-06-30 08:13 | ED_ITS ---
HPI - Extremity Injury (Lower) General Chief Complaint: Extremity Injury, Lower Stated Complaint: INJURED R FOOT/ANKLE Time Seen by Provider: 06/30/24 08:13 Source: patient Mode of arrival: ambulatory Limitations: no limitations History of Present Illness HPI Narrative: Patient is a 39-year-old female who presents with right foot pain after rolling foot yesterday. Patient has existing hardware in foot so is concerned for damage to that. Patient still able ambulate with limp. Denies any numbness, tingling or weakness to the foot. Related Data Home Medications ?Medication ?Instructions ?Recorded ?Confirmed ?Last Taken ?Type No Home Medications 06/30/24 06/30/24 Unknown History Allergies Allergy/AdvReac Type Severity Reaction Status Date / Time bee venom protein (honey bee) Allergy Severe Anaphylactic Verified 06/30/24 08:22 Shock soy Allergy Mild Rash Verified 06/30/24 08:22 peanut Allergy Unknown NUTS Verified 06/30/24 08:22 CAUSE RASH metoclopramide AdvReac Mild jitters Verified 06/30/24 08:22 Review of Systems Review of Systems: All systems reviewed & are unremarkable except as noted in HPI and below Constitutional: Constitutional: Denies body ache(s), Denies chills, Denies fatigue, Denies fever(s), Denies headache(s), Denies malaise and Denies weakness Eyes: Eyes: Denies blurry vision, Denies irritation and Denies loss of vision ENT: Denies otalgia, Denies headache(s), Denies nasal discharge, Denies sinus pain and Denies sore throat Cardiovascular: Cardiovascular: Denies chest pain, Denies irregular heart rhythm and Denies dyspnea Respiratory: Respiratory: Denies dyspnea Gastrointestinal: Gastrointestinal: Denies abdominal pain, Denies melena, Denies hematochezia, Denies diarrhea, Denies nausea and Denies vomiting Musculoskeletal: Musculoskeletal: Denies back pain, Denies myalgias and Reports arthralgias Integumentary/Breasts: Skin/Breast: Denies pruritus and Denies rash Neurologic: Denies headache(s), Denies loss of vision and Denies weakness Psychiatric: Psychiatric: Reports no additional psychiatric complaints Endocrine: Endocrine: Denies fatigue PMFSH Past Medical History Medical History Viral gastroenteritis Fibroids History of pneumonia Anxiety Jaquez syndrome Back pain Foot fracture, right UTI (urinary tract infection) Ovarian cyst Pneumonia Bronchitis Brain abscess Surgical History Surgical History Hx of appendectomy Hx of foot surgery hardware in rt foot Hx of section History of hysterectomy Hx of brain surgery surgical removal of brain abscess Hx of tonsillectomy Family History Family History Grandparent Family history of malignant neoplasm of breast Family history of malignant neoplasm of ovary Social History Social History Alcohol intake: never Gender identity (if verbalized by the patient): Female Comments At time of signature, agree with nursing past medical, surgical, social and family history. There is no relevant family history pertinent to the presenting complaint. Exam Const: General: cooperative, healthy appearing, comfortable, no acute distress and well nourished Nutritional Appearance: well nourished Paras entation/consciousness: patient oriented x3 Limitations: no limitations HENMT: Head: normal to inspection, normocephalic and atraumatic Ears: hearing grossly normal bilaterally and external ears normal Face/Nose/Sinus: Normal external nose present, normal facial exam and face symmetric Face and sinus: normal facial exam and face symmetric Mouth: Yes lip normal Eyes: General: appearance normal, both eyes and all related structures Alignment and Position: alignment normal and position normal Periorbital: periorbital findings normal Eyelids: eyelids normal Pupils: Equal, round and reactive pupils present EOM: EOMs intact bilaterally Neck: Neck: normal visual inspection, full ROM and supple Chest: Chest palpation & inspection: normal inspection of the chest Resp: Effort & Inspection: normal respiratory effort and able to speak in complete sentences Auscultation: clear to auscultation bilaterally Cardio: Rate: regular rate Rhythm: regular rhythm Heart sounds: S1 normal heart sound present and S2 normal heart sound present GI: Inspection: normal to inspection Skin: General skin exam: normal color and no rashes or lesions noted Neuro: General: patient oriented x3 and moves all extremities Cranial nerves: Yes Equal, round and reactive pupils present Speech: normal speech Gait exam (Neuro): Normal gait present Extrem: General: normal to inspection, full ROM and no edema Right lower extremity: ankle Details: normal to inspection and abnormal ROM Details: pain with active ROM Details: with dorsiflexion and with inversion; not with plantar flexion and not with eversion; no tenderness, no swelling and achilles tendon exam normal and foot Details: normal capillary refill, normal to inspection, tenderness Location: of the lateral foot Location: proximally, toes with normal ROM, no edema, ecchymosis dorsal lateral proximal , vascular exam Details: dorsalis pedis pulse present and normal capillary refill and tendon exam Details: active flexion normal Location: of all toes and active extension normal Location: of all toes Psych: Appearance: grossly normal and well kempt Mental Status: mental status grossly normal Speech and movement: Normal speech and movement present Affect: normal affect Attitude: cooperative Thought process: Normal thought process present Course Course Emergency Course: Patient is aware of diagnosis, understands and agrees to treatment plan. Anticipatory guidance given. Patient agrees to follow-up as directed and is aware of reasons to seek care at the emergency department. Portions of this record may have been created with voice recognition software Level of Care: Express Care Visit Vital Signs Vital signs: Reviewed MDM - Extremity Injury (Lower) MDM Narrative Medical decision making narrative: Pt well hydrated appearing, in no respiratory distress, hemodynamically stable. Recommend supportive care. The patient is stable at time of discharge the clinical impression was discussed and the patient was given the opportunity to ask questions, which were addressed as completely as possible given the information available at present. Anticipatory guidance and return to care precautions were discussed and the importance of primary care follow-up was stressed and encouraged. The patient voiced understanding of the plan, indications to return, and the need for follow-up. Exam findings show no acute concerns or changes Patient is appropriate for outpatient treatment and follow-up. Differential Diagnosis Differential diagnosis: Likely ankle sprain and strain, ankle fracture and other (Foot sprain, foot fracture) Medical Records Attestation: I reviewed the patient's medical records. Imaging Data Radiologist's impression: EXAMINATION: XR foot RT min 3V DATE: 06/30/2024 08:39 INDICATION: Right foot injury and pain. TECHNIQUE: 5 views of right foot were obtained. COMPARISON: Right ankle radiographs 04/05/2019 FINDINGS: Alignment is normal. No fracture. There is a screw between base of first metatarsal and medial cuneiform. There is a screw between the medial and intermediate cuneiforms. There is a screw between the medial cuneiform and base of second metatarsal. There is mild osteoarthritis of talonavicular joint. IMPRESSION: 1. No acute fracture. 2. Arthrodesis procedures involving the medial midfoot and Lisfranc joint. Discharge Plan Discharge Clinical Impression: Foot sprain Qualifiers: Encounter type: initial encounter Laterality: right Qualified Code(s): S93.601A - Unspecified sprain of right foot, initial encounter Patient Disposition: Home, Self-Care Condition: Stable Instructions: Foot Sprain (ED) Additional Instructions: Xray showed no fracture. Minimize activities that aggravate the condition The RICE protocol. Follow the RICE protocol as soon as possible after your injury: Rest your foot by not walking on it. Ice should be immediately applied to keep the swelling down. It can be used for 20 to 30 minutes, three or four times daily. Do not apply ice directly to your skin. Compression dressings, bandages or yoselny-wraps will immobilize and support your injured foot. Elevate your foot above the level of your heart as often as possible during the first 48 hours. Medication: For pain, you may take: Tylenol 650-1000mg by mouth every 4-6 hours. Do not exceed 4000mg in 24 hours. Advil (Ibuprofen) 600 mg by mouth every 6 hours. Do not exceed 2400mg in 24 hours. 8 AM: Tylenol 11 AM: Ibuprofen 2 PM: Tylenol 5 PM: Ibuprofen 8 PM: Tylenol 11 PM: Ibuprofen 2 AM: Tylenol 5 AM: Ibuprofen Please schedule a follow-up visit with your personal physician for further evaluation and treatment within 1week OR If your symptoms persist, change or worsen significantly before you can contact your personal physician then please, without delay, go to the emergency department for further evaluation. Patient Language: Bulgarian Prescriptions: No Action No Home Medications Follow-up/Referrals: Magui,Luann [Other] - 3 Days Stand Alone Forms: Work/School Release IP Time of Disposition: 09:08
[2024-06-30 08:25] VITALS: BP 117/80; PULSE 89; RESP 16; TEMP 36.5; O2SAT 100
== END 2024-06-30 09:12 | disposition home or self-care (01) ==
PROVIDERS: Emergency Provider Nurse Practitioner Family
DX: S93.601A Unspecified sprain of right foot, initial encounter (principal); X50.9XXA Other and unspecified overexertion or strenuous movements or postures, initial encounter
CPT/HCPCS: 73630; 99213; G0463

== ENCOUNTER 2024-08-07 09:56 | Emergency (ER) | payer MEDICAID, SELFPAY ==
[2024-08-07 10:04] VITALS: BP 119/92; PULSE 88; RESP 20; TEMP 36.6; O2SAT 100
--- NOTE | 2024-08-07 10:06 | ED_ITS ---
HPI - Animal Bite General Chief Complaint: Animal Bite Stated Complaint: Dog Bite/Left Arm Time Seen by Provider: 08/07/24 10:08 Source: patient, RN notes reviewed and old records reviewed Mode of arrival: ambulatory Limitations: no limitations History of Present Illness HPI narrative: 39 year old female presents to [facility] care with complaints of her dog and unknown teen counselor dog getting into fight last night around 0 and she whe went out to break up the fight and in process got bit or scratched on her left forearm and left hand. She state that she is not sure if was her dog and or other dog that either bit her or scratched her. Patient also has discomfort and some bruising to the underside of left wrist with swelling of her left hand. Patient has 6 small laceration/scratches or bite bedolla to left lower forearm and few scattered abrasions top of left hand. Patient reports that she washed her left arm and hand with awn dish soap and also used peroxide to wounds. Patient has also been taking Ibuprofen for her discomfort, tetanus is up to date. MD complaint: animal bite (dog) Onset (ago): day(s) (last night at 2230) Animal: dog Description of animal: household pet and unknown animal Mechanism: bite and scratch Location: other (left hand and forearm) Severity scale (1-10): 7 Treatments prior to arrival: other (washed with warm water and chandni detergent rinsed, peroxide on anterior arm abrasions) Related Data Patient tetanus UTD: Yes Allergies Allergy/AdvReac Type Severity Reaction Status Date / Time bee venom protein (honey bee) Allergy Severe Anaphylactic Verified 08/07/24 10:09 Shock soy Allergy Mild Rash Verified 08/07/24 10:09 peanut Allergy Unknown NUTS Verified 08/07/24 10:09 CAUSE RASH metoclopramide AdvReac Mild jitters Verified 08/07/24 10:09 Review of Systems Review of Systems: CONSTITUTIONAL: Denies fever, chills, or sweats. CARDIOVASCULAR: Denies chest pain, palpitations, or edema. RESPIRATORY: Denies cough or dyspnea. GASTROINTESTINAL: Denies abdominal pain, nausea, vomiting SKIN: Reports redness and swelling with abrasions and puncture bedolla noted to left forearm and left hand. No drainage noted some scabbing of abrasions on left forearm with some bruising noted to posterior Denies purulent drainage, numbness, pain beyond proportion MUSCULOSKELETAL: Denies myalgia. 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 surgical Viral gastroenteritis Fibroids History of pneumonia Anxiety Jaquez syndrome Back pain Foot fracture, right UTI (urinary tract infection) Ovarian cyst Pneumonia Bronchitis Brain abscess Surgical History Surgical History Hx of appendectomy Hx of foot surgery hardware in rt foot Hx of section History of hysterectomy Hx of brain surgery surgical removal of brain abscess Hx of tonsillectomy Family History Family History Grandparent Family history of malignant neoplasm of breast Family history of malignant neoplasm of ovary Social History Social History (Updated 08/08/24 @ 12:36 by Olivia Wisdom NP) Smoking packs per day: 0.5 Smoking cigarettes per day: 10.0 Smoking status: Current every day smoker Tobacco type: cigarettes Alcohol intake: never Substance use: current Other substance usage details: marijuana gummies at times Living arrangements: with family Gender identity (if verbalized by the patient): Female Comments At time of signature, agree with nursing past medical, surgical, social and family history. There is no relevant family history pertinent to the presenting complaint Exam Narrative: GENERAL: Well-appearing, well-nourished, and in no acute distress. HEAD: Normocephalic, atraumatic. EYES: PERRLA and EOMI. ENT: Nares clear, no rhinorrhea or epistaxis. Mucous membranes moist. NECK: Supple no lymphadenopathy. CHEST: Clear to auscultation. No respiratory distress. SAO2 100% on room air HEART: Regular rate and rhythm. No murmur heard. Normal peripheral pulses. ABDOMEN: Soft, nontender, nondistended, normal active bowel sounds. EXTREMITIES: Normal range of motion. No edema. SKIN: Warm, dry. Erythema, induration, tenderness, no warmth to multiple scratch. bite areas on left lower forearm and left hand with some swelling to hand noted,, no drainage from sites,. No vesicles, bullae, necrosis, ecchymosis to underside of left wrist, full ROM of left wrist noted. some swelling of left hand but is able to make fist. NEURO: No focal deficits. Alert and oriented x3. Course Course Emergency Course: Patient is aware of diagnosis, understands and agrees to treatment plan. Anticipatory guidance given. Patient agrees to follow-up as directed and is aware of reasons to seek care at the emergency department. Portions of this record may have been created with voice recognition software Level of Care: Express Care Visit Vital Signs Vital signs: Vital Signs Temperature 36.6 C 08/07/24 10:04 Pulse Rate 88 08/07/24 10:04 Respiratory Rate 20 08/07/24 10:04 Blood Pressure 119/92 H 08/07/24 10:04 Pulse Oximetry 100 08/07/24 10:04 Oxygen Delivery Room Air 08/07/24 10:04 Temperature 36.6 C 08/07/24 10:04 Pulse Rate 88 08/07/24 10:04 Respiratory Rate 20 08/07/24 10:04 Blood Pressure 119/92 H 08/07/24 10:04 Pulse Oximetry 100 08/07/24 10:04 Oxygen Delivery Room Air 08/07/24 10:04 Reviewed MDM - Animal Bite Differential Diagnosis Differential diagnosis: Likely bite by animal, dog bite and other (swelling and pain to left hand and forearm) Medical Records Attestation: I reviewed the patient's medical records. Critical Care Time Critical Care Time Critical Care Time: No Discharge Plan Discharge Clinical Impression: Dog bite of arm Qualifiers: Encounter type: initial encounter Laterality: left Qualified Code(s): S41.152A - Open bite of left upper arm, initial encounter; W54.0XXA - Bitten by dog, initial encounter Dog bite of left hand Qualifiers: Encounter type: initial encounter Qualified Code(s): S61.452A - Open bite of left hand, initial encounter; W54.0XXA - Bitten by dog, initial encounter Patient Disposition: Home Condition: Stable Instructions: Antibiotic Form, Animal Bite (ED) Additional Instructions: Cleanse left hand and forearm with liquid Dial soap twice daily rinse pat dry apply mupirocin ointment watch for any increasing infection--redness, swelling, drainage Tylenol or ibuprofen for any fever pain follow up with PCP in 7-10 days for a wound check recheck if develop fever, chills, increasing symptom Go to the ER if your symptoms become worse of if ANY new symptoms develop Ice to left hand and forearm 20 minutes every 2 hours while awake Antibiotic as prescribed complete all doses If your symptoms persist, change or worsen significantly before you can contact your personal physician then please, without delay, go to the emergency department for further evaluation. Follow-up with PCP in 7-10 days or sooner if needed Follow up with PCP soon in regards to your blood pressure which is elevated above threshold for referral. Blood pressure above 120/80 may indicate pre- hypertension. 119/92 Patient Language: Brazilian Prescriptions: New amoxicillin-pot clavulanate 875-125 mg tablet 1 tablet PO Q12H Qty: 20 0RF Rx Instructions: Take all doses of oral antibiotic as prescribed recommend take probiotic or eat Activia yogurt while taking this medicine mupirocin [Centany] 2 % ointment 1 applic topical BID Qty: 22 0RF Rx Instructions: Apply to wounds twice daily Follow-up/Referrals: PHYSICIAN NOT ON STAFF,NONSTAFF [Primary Care Provider] - Stand Alone Forms: Work/School Release IP Time of Disposition: 10:32 Quality Aliyah Coma Scale Eyes: Open Verbal: Oriented and Alert Motor: Follows Commands [place] Coma Total Score: 15
--- OUTSIDE RECORDS SUMMARY | 2024-08-07 11:10 | XMS_ITS | Clinical Summary ---
Author Organization [facility] Address [address] [place] [address] Phone Care Team Providers Care Curing Supervisor Name Role Phone Provider, None Primary Care Provider Unavailabl e Allergies Active Allergy Reactions Criticality Noted Date Comments Metoclopramide Anxiety 01/12/2020 Medications No known medications Social History Tobacco Use Types Packs/Day Years Used Date Smoking Tobacco: Every Day Cigarettes Smokeless Tobacco: Never Alcohol Use Standard Drinks/Week Comments Never 0 (1 standard drink = 0.6 oz pur e alcohol) AUDIT-C Answer Date Recorded Q1: How often do you have a drink containing alc ohol? Never 01/12/2020 Average Number of Drinks Not on file 020 Frequency of Binge Drinking Not on file 12/19 Comments Unknown Sex and Gender Information Value Date Recorded Sex Assigned at Not on file Legal Sex Female 8:34 PM CDT Gender Identity Not on file Sexual Orientation Not on file Last Filed Vital Signs Vital Sign Reading Time Taken Comments Blood Pressure 126/81 01/12/2020 12:37 PM CDT Pulse 80 01/12/2020 12:37 PM CDT Temperature 36.4 C (97.5 F) 01/12/2020 12:37 PM CDT Respiratory Rate 16 01/12/2020 12:37 PM CDT Oxygen Saturation 96% 01/12/2020 12:37 PM CDT Inhaled Oxygen Concentration - - Weight 72.6 kg (160 lb) 01/12/2020 12:37 PM CDT Height 160 cm (5' 3 ) 01/12/2020 12:37 PM CDT Body Mass Index 28.34 01/12/2020 12:37 PM CDT Plan of Treatment Not on file Insurance [facility] Care Teams Curing Supervisor Relationship Specialty Start Date End Date Provider, [place] PCP - General 01/12/20
--- OUTSIDE RECORDS SUMMARY | 2024-08-07 11:10 | XMS_ITS | Encounter Summary ---
Author Organization [facility] Address [address] [place] [address] Care Team Providers Care Lurer Name Role Phone Luann Kilgore APRN-KIMBERLY Primary Care Provider [phone] Reason for Visit * Reason Onset Date Comments Appointment 03/27/2019 Encounter Details Date Type Department Care Team (Late st Contact Info) Description 03/27/2019 [facility]phone [facility] [address] [facility] [address] [place] [address] Luann Kilgore APRN-CNP [address] [phone] Appointment Social History Tobacco Use Types Packs/Day Years Used Date Smoking Tobacco: Every Day Cigarettes 1 15 Smokeless Tobacco: Never Alcohol Use Standard Drinks/Week Comments No 0 (1 standard drink = 0.6 oz pur e alcohol) Comments No Sex and Gender Information Value Date Recorded Sex Assigned at Not on file Legal Sex Female 5:42 AM IMPREGNATOR ELECTROLYTIC CAPACITORS Gender Identity Not on file Sexual Orientation Not on file documented as of this encounter Miscellaneous Notes * Telephone Encounter - Meredith River - 03/27/2019 1:35 PM CST Called patient and made her appointment for Tomorrow 03/28/19 EGNATOR ELECTROLYTIC CAPACITORS * Telephone Encounter - Sherin Nelson - 03/27/2019 9:46 AM CST Current Provider name:Luann Kilgore Reason for call: Pt sent an mychart message doctor but also patient called into staying she an tumor on lung and er asked for pt to follow up as soon a possible . Patient possible looking to come in today . Patient Call Back number: [phone] EGNATOR ELECTROLYTIC CAPACITORS documented in this encounter Plan of Treatment Not on file documented as of this encounter Visit Diagnoses Not on filedocumented in this encounter Care Teams Lurer Relationship Specialty Start Date End Date Luann Kilgore APRN-BUTTER WRAPPER PCP - General 11/15/17 documented as of this encounter
--- OUTSIDE RECORDS SUMMARY | 2024-08-07 11:10 | XMS_ITS | Clinical Summary ---
Author Organization [facility] Address [facility] [place] [address] Care Team Providers Care Secondary Market Manager Name Role Phone Unavailable Primary Care Provider Unavailabl e Social History Tobacco Use Types Packs/Day Years Used Date Smoking Tobacco: Never Assessed Comments Unknown Sex and Gender Information Value Date Recorded Sex Assigned at Not on file Legal Sex Female 8:55 PM CDT Gender Identity Not on file Sexual Orientation Not on file Last Filed Vital Signs Vital Sign Reading Time Taken Comments Blood Pressure 116/60 09/14/2017 1:15 PM CDT Pulse 89 09/14/2017 1:15 PM CDT Temperature - - Respiratory Rate - - Oxygen Saturation - - Inhaled Oxygen Concentration - - Weight 61.2 kg (135 lb) 09/14/2017 1:15 PM CDT Height 160 cm (5' 3 ) 09/14/2017 1:15 PM CDT Body Mass Index 23.91 09/14/2017 1:15 PM CDT Plan of Treatment Health Maintenance Due Date Last Done Comments Cervical Cancer Screening Pa p Smear (Age 30 to 64) Every 3 Years 1987 Annual Physical 1990 Hepatitis C 2005 DTaP, Tdap and Td Vaccines ( 1 - Tdap) 2006 Hepatitis B Vaccines (1 of 3 - 19+ 3-dose series) 2006 Cervical Cancer Screening Pa p with HPV Testing (Age 30 to 64) Every 5 Years 2017 Cervical Cancer Screening with HPV 2017 COVID-19 Vaccine ( - 2023-2 5 season) 2023 HPV Vaccines Aged Out No longer eligi ble based on patient's age to complete this topic Meningococcal B Vaccine Aged Out No l onger eligible based on patient's age to complete this topic Meningococcal Vaccine Aged Out No peter walt eligible based on patient's age to complete this topic Pneumococcal Vaccine: Pediat rics (0 to 5 Years) and At-Risk Patients (6 to 49 Years) Aged Out No longer eligible b ased on patient's age to complete this topic RSV Immunizations Under 20 Months Aged Out No longer eligible based on patient's age to complete this topic
--- OUTSIDE RECORDS SUMMARY | 2024-08-07 11:10 | XMS_ITS | Clinical Summary ---
Author Organization [facility] Address [address] [place] [address] Care Team Providers Care Mechanical Engineering Teacher Name Role Phone Luann Kilgore APRN-STOCKROOM INVENTORY CLERK Primary Care Provider [phone] Source Comments [facility],non-owned Affiliates and Associated Physician Practices is amultiple site organization consisting of ambulatory clinics and hospital sitesin [place], [place], [place] and [place]. This disclosure is being madepursuant to the Care Everywhere program and may not contain all information available regarding this patient. Last updated 18.[facility] Allergies Active Allergy Reactions Criticality Noted Date Comments Bee Venom Anaphylaxis High 05/03/2018 Metoclopramide Other,Psychiatric Medium 01/01/2011 Made her go crazy, shaking/trembling. Medications * Be aware that medications may not be up to date on this document. Alwaysverify current medications with the patient. EPINEPHrine (EPIPEN) 0.3 MG/0.3ML auto-injector pen Inject 0.3 mL into muscle as needed 1 08/19/2017 Active Active Problems Problem Noted Date Diagnosed Date Anxiety and depression 06/27/2019 Chronic pain syndrome 06/27/2019 Anxiety disorder, unspecified 03/29/2019 Thyroid nodule 07/14/2018 Rash and other nonspecific skin eruption 019 Multiple benign melanocytic nevi of upper and lower extremities and trunk 06/27/2018 Abnormal uterine bleeding 09/23/2017 Inappropriate diet or eating habits 05/21/2017 Smoking 05/21/2017 Overview (07/19/2024): IMO 07/19/2024 POTS (postural orthostatic tachycardia syndrome) 11/12/2015 Syncope 11/12/2015 Overview (11/17/2017): Overview: Stress test on 06-15-2017 showed: A normal study. Blood pressure response was appropriate. Heart rate response was appropriate. Exercise tolerance was fair. 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 (FLUBLOCK QUADRIVALENT; 18Y+) (RIV4) 01/30/2020 Family History Medical History Relation Name Comments Cancer - Breast Maternal Grandmother Cancer - Ovarian Maternal Grandmother Diabetes - Type 2 Maternal Grandmother Glaucoma Mother Cancer - Ovarian Other unte Thyroid Disease Neg Hx Relation Name Status Comments Maternal Grandmother Mother Alive Other Social History Tobacco Use Types Packs/Day Years Used Date Smoking Tobacco: Every Day Cigarettes 0.3 24.2 Started: 05/31/2000 Smokeless Tobacco: Never Tobacco Cessation:Ready to Q uit: Not Asked; Counseling Given: Not Answered Alcohol Use Standard Drinks/Week Comments No 0 (1 standard drink = 0.6 oz pur e alcohol) AUDIT-C Answer Date Recorded Q1: How often do you have a drink containing alc ohol? Never 10/05/2022 Average Number of Drinks Not on file 023 Frequency of Binge Drinking Not on file 09/17 PHQ-2 Answer Date Recorded PHQ2 TOTAL SCORE 0 12/03/2020 Comments No Sex and Gender Information Value Date Recorded Sex Assigned at Not on file Legal Sex Female 5:42 AM FOAM CASTER Gender Identity Not on file Sexual Orientation Not on file Last Filed Vital Signs Vital Sign Reading Time Taken Comments Blood Pressure 117/80 12/29/2022 10:09 AM CDT Pulse 89 12/29/2022 10:09 AM CDT Temperature 37 C (98.6 F) 12/29/2022 10:09 AM CDT Respiratory Rate 18 12/29/2022 10:09 AM CDT Oxygen Saturation 99% 12/29/2022 10:09 AM CDT Inhaled Oxygen Concentration 97% 10/05/2022 8 :15 AM CDT Weight 75.8 kg (167 lb 3.2 oz) 12/29/2022 10:09 AM CDT Height 160 cm (5' 3 ) 12/29/2022 10:09 AM CDT Body Mass Index 29.62 12/29/2022 10:09 AM CDT Plan of Treatment Health Maintenance Due Date Last Done Comments HIV SCREENING 2002 HEPATITIS C SCREENING 01/02/2005 HEPATITIS B VACCINE (1 of 3 - 19+ 3-dose series) 2006 PNEUMOCOCCAL VACCINE (2 of 2 - PCV) 06/26/2020 06/27/2019 COVID-19 VACCINE (1 - 2023-2 5 season) 2023 DEPRESSION SCREENING 04/19/2024 INFLUENZA VACCINE (Season Ended) 2024 01/30/20 20 DTAP/TDAP/TD VACCINES (2 - T d or Tdap) 06/26/2029 06/27/2019 ZOSTER VACCINE (1 of 2) 2037 HIB VACCINE Aged Out No longer eligi ble based on patient's age to complete this topic HPV VACCINE Aged Out No longer eligi ble based on patient's age to complete this topic MENINGOCOCCAL (Group B) VACC INE SHARED DECISION-MAKING Aged Out No longer eligibl e based on patient's age to complete this topic MENINGOCOCCAL GROUPS A/C/Y/W VACCINE Aged Out No longer eligible b ased on patient's age to complete this topic PAP SMEAR Discontinued Goals Goal Patient Goal Type Associated Problems Recent Progress Patient-Stated? Author Medication Management General On track( 021 10:48 AM FOAM CASTER) No Micheline Petersen, RN Note: Expected end date: ongoing Interventions: Take all medications as prescribed Let your doctor know right away about any changes in your medications Make sure to request a refill of your medication at least one week prior to your last dose Medical Devices Implanted Type Area Frame Aligner Device Identifier Shelf Expiration Date Model / Serial / Lot Fiberstitch Implant, 24*Curve With Two Polyester Implants And 2.0 Fiberwire Suture Implanted:Qty: 2 on 02/05/2021 by Cindy Daly MD at [facility] Left: Knee 08/16/2024 AR-4570-24 / [id number] / [id number] Fiberstitch Implant, 24*Curve With Two Polyester Implants And 2.0 Fiberwire Suture Implanted:Qty: 1 on 02/05/2021 by Cindy Daly MD at [facility] Left: Knee 12/17/2024 AR-4570-24 / [id number] / [id number] Fiberstitch Implant, Curved With Two Polyester Implants Implanted:Qty: 1 on 02/05/2021 by Cindy Daly MD at [facility] Left: Knee 04/18/2025 AR-4570 / [id number] / [id number] Insurance [facility] Care Teams Mechanical Engineering Teacher Relationship Specialty Start Date End Date Luann Kilgore APRN-KIMBERLY PCP - General 11/15/17
--- OUTSIDE RECORDS SUMMARY | 2024-08-07 11:10 | XMS_ITS | Encounter Summary ---
Author Organization [facility] Address [address] [place] [address] Care Team Providers Care Finishing Department Supervisor Name Role Phone Luann Kilgore APRN-KIMBERLY Primary Care Provider [phone] Encounter Details Date Type Department Care Team (Late st Contact Info) Description 09/30/2021 Telephone [facility] [address] [facility] [facility] [place] [phone] Luann Kilgore APRN-CNP [address] [place] [id number] Social History Tobacco Use Types Packs/Day Years Used Date Smoking Tobacco: Every Day Cigarettes 0.3 24.2 Started: 05/31/2000 Smokeless Tobacco: Never Alcohol Use Standard Drinks/Week Comments No 0 (1 standard drink = 0.6 oz pur e alcohol) PHQ-2 Answer Date Recorded PHQ2 TOTAL SCORE 0 12/03/2020 Comments No Sex and Gender Information Value Date Recorded Sex Assigned at Not on file Legal Sex Female 5:42 AM CLINICAL TEAM LEAD Gender Identity Not on file Sexual Orientation Not on file documented as of this encounter Plan of Treatment Not on file documented as of this encounter Goals Goal Patient Goal Type Associated Problems Recent Progress Patient-Stated? Author Medication Management General On track( 021 10:48 AM CLINICAL TEAM LEAD) No Micheline Petersen RN Note: Expected end date: ongoing Interventions: Take all medications as prescribed Let your doctor know right away about any changes in your medications Make sure to request a refill of your medication at least one week prior to your last dose documented as of this encounter Visit Diagnoses Not on filedocumented in this encounter Care Teams Finishing Department Supervisor Relationship Specialty Start Date End Date Luann Kilgore APRN-KIMBERLY PCP - General 11/15/17 documented as of this encounter
== END 2024-08-07 10:43 | disposition home or self-care (01) ==
PROVIDERS: Emergency Provider Registered Nurse
DX: S51.852A Open bite of left forearm, initial encounter (principal); S61.452A Open bite of left hand, initial encounter; W54.0XXA Bitten by dog, initial encounter; F17.210 Nicotine dependence, cigarettes, uncomplicated; F12.90 Cannabis use, unspecified, uncomplicated; Z86.018 Personal history of other benign neoplasm
CPT/HCPCS: 99213; G0463